=== PATIENT | male | born 1965 | race Caucasian/White ===

== ENCOUNTER 2022-07-29 10:21 | Inpatient (IN) | payer SELFPAY ==
[2022-07-29] VITALS (37 sets, daily range): BP systolic 96–121; BP diastolic 56–81; PULSE 72–107; RESP 18; TEMP 36.9–38.5; O2SAT 94–100; BMI 32.8; BMI 28.0
--- NOTE | 2022-07-29 11:05 | ED_ITS ---
HPI - General Adult General Chief complaint: Headache/Migraine Stated complaint: Headache Time Seen by Provider: 07/29/22 10:44 Source: patient Mode of arrival: ambulatory Limitations: no limitations History of Present Illness HPI narrative: 57-year-old male coming in today not feeling well. Patient states that he has been sick for about 12 days. He started not feeling well last Monday after eating [place] food. He stated that he had an upset stomach and nausea. Then on Monday he developed chills after work and increased fatigued, as well as a headache. He has been feeling unwell since. He denies chest or abdominal pain. Does complain of continued nausea. States that he had a hard time eating for a few days because he was so nauseated. Denies any diarrhea. Denies any urinary symptoms such as increased frequency, urgency or dysuria. He denies cough, congestion or sore throat. No neurologic symptoms such as focal neurologic deficits. Related Data Home Medications Medication Instructions Recorded Confirmed No Known Home Medications 07/29/22 07/29/22 Allergies Allergy/AdvReac Type Severity Reaction Status Date / Time No Known Drug Allergies Allergy Verified 07/29/22 10:36 Review of Systems Status of ROS: Reports: 10 or more systems reviewed and unremarkable except as noted in History and below [facility] Social History Smoking Status: Never smoker How often do you have a drink containing alcohol: never How often do you have six or more drinks on one occasion: Never AUDIT-C Alcohol total score: 0 Non-prescribed substance use: denies use Exam Narrative: Exam Narrative: Well-nourished well-developed patient in no acute distress. Alert and oriented. Answers questions appropriately. Mood and affect are appropriate. Thoughts are goal oriented and rational. No tangential or magical thinking noted. Patient speaks in full sentences without needing to catch their breath. HEENT: Normocephalic atraumatic. Pupils are equally round reactive to light. Extraocular muscles are intact. Conjunctivae are moist without any icterus noted. Moist mucous membranes. Posterior pharynx is normal. Neck is soft without any lymphadenopathy or thyromegaly. No masses are appreciated. Cardiovascular: Heart is regular rate and rhythm S1 and S2 are present without any murmurs. Lungs: Clear to auscultation bilaterally no wheezes rhonchi or rales are appreciated. Patient takes deep breaths without any discomfort. Abdomen: Soft and nontender nondistended with normal bowel sounds. No guarding or rebound. No masses or organomegaly appreciated. Extremities: Bilateral lower extremities are without edema. Normal DP and PT pulses. Skin: Well perfused without any obvious rashes. Const: Vital Signs, click to edit/add: Vital Signs - 24 hr 07/29/22 10:32 07/29/22 11:31 07/29/22 11:32 Temperature 99.0 F Pulse Rate 86 84 Pulse Rate [Right Pulse Oximeter] 106 H Respiratory Rate 18 Blood Pressure 110/65 Blood Pressure [Ri ght Upper Arm] 118/81 Pulse Oximetry 98 97 96 Oxygen Delivery Me thod Room Air 07/29/22 11:45 07/29/22 12:00 07/29/22 12:01 Temperature Pulse Rate 80 82 78 Pulse Rate [Right Pulse Oximeter] Respiratory Rate Blood Pressure 97/62 Blood Pressure [Ri ght Upper Arm] Pulse Oximetry 95 95 95 Oxygen Delivery Me thod 07/29/22 12:02 07/29/22 12:16 07/29/22 12:30 Temperature Pulse Rate 80 81 73 Pulse Rate [Right Pulse Oximeter] Respiratory Rate Blood Pressure Blood Pressure [Ri ght Upper Arm] Pulse Oximetry 96 97 96 Oxygen Delivery Me thod 07/29/22 12:32 07/29/22 12:45 07/29/22 13:00 Temperature Pulse Rate 75 77 73 Pulse Rate [Right Pulse Oximeter] Respiratory Rate Blood Pressure 105/69 Blood Pressure [Ri ght Upper Arm] Pulse Oximetry 96 95 97 Oxygen Delivery Me thod 07/29/22 13:02 07/29/22 13:15 07/29/22 15:15 Temperature Pulse Rate 72 73 72 Pulse Rate [Right Pulse Oximeter] Respiratory Rate Blood Pressure 105/56 L Blood Pressure [Ri ght Upper Arm] Pulse Oximetry 97 94 97 Oxygen Delivery Me thod 07/29/22 15:17 07/29/22 15:30 07/29/22 15:45 Temperature Pulse Rate 72 75 74 Pulse Rate [Right Pulse Oximeter] Respiratory Rate Blood Pressure 110/69 Blood Pressure [Ri ght Upper Arm] Pulse Oximetry 99 98 99 Oxygen Delivery Me thod 07/29/22 16:00 07/29/22 16:17 07/29/22 16:30 Temperature Pulse Rate 73 81 77 Pulse Rate [Right Pulse Oximeter] Respiratory Rate Blood Pressure Blood Pressure [Ri ght Upper Arm] Pulse Oximetry 97 100 96 Oxygen Delivery Me thod 07/29/22 19:14 07/29/22 16:45 07/29/22 17:00 Temperature 101.3 F H Pulse Rate 81 88 Pulse Rate [Right Pulse Oximeter] Respiratory Rate Blood Pressure Blood Pressure [Ri ght Upper Arm] Pulse Oximetry 99 96 Oxygen Delivery Me thod 07/29/22 17:15 07/29/22 17:30 07/29/22 17:45 Temperature Pulse Rate 84 86 88 Pulse Rate [Right Pulse Oximeter] Respiratory Rate Blood Pressure Blood Pressure [Ri ght Upper Arm] Pulse Oximetry 97 96 97 Oxygen Delivery Me thod 07/29/22 19:13 Temperature Pulse Rate 93 Pulse Rate [Right Pulse Oximeter] Respiratory Rate Blood Pressure Blood Pressure [Ri ght Upper Arm] Pulse Oximetry 95 Oxygen Delivery Me thod Course Course Hospital Course: For his headache, he received normal saline, Toradol, Zofran. This helped a little bit but is headache soon came back. IV morphine was given at that time. Patient had elevated white cell count and significantly elevated CRP. Because of this we did proceed with an abdomen and pelvis CT which showed liver lesions concerning for metastasis, diverticulitis was also present although an underlying colonic lesion cannot be excluded at this time. We did start him on IV ertapenem at this time. I did consult with Dr. Mcgovern who recommended a chest CT and a liver MRI. Chest CT showed ground-glass subpleural reticular opacities of unclear significance. Liver MRI showing lesions concerning for metastatic disease. Given that the patient continue to have headaches also added a head MRI to rule out brain metastasis. Brain MRI was unremarkable. While he was here, patient developed a fever of 101.3. And became diaphoretic. Because of this we also did blood cultures despite antibiotic treatment. At this time it was decided to admit the patient for further management. Vital Signs Vital signs: Initial Vital Signs Temperature 99.0 F 07/29/22 10:32 Temperature Source Temporal Artery Scan 07/29/22 10:32 Pulse Rate 106 H 07/29/22 10:32 Respiratory Rate 18 07/29/22 10:32 Blood Pressure 118/81 07/29/22 10:32 Blood Pressure Mean 93 07/29/22 10:32 Blood Pressure Position Sitting 07/29/22 10:32 Pulse Oximetry 98 07/29/22 10:32 Oxygen Delivery Method 07/29/22 10:32 Vital Signs Temperature 99.0 F 07/29/22 10:32 Pulse Rate 106 H 07/29/22 10:32 Respiratory Rate 18 07/29/22 10:32 Blood Pressure 118/81 07/29/22 10:32 Pulse Oximetry 98 07/29/22 10:32 Oxygen Delivery Method 07/29/22 10:32 Temperature 101.3 F H 07/29/22 19:14 Pulse Rate 93 07/29/22 19:13 Respiratory Rate 18 07/29/22 10:32 Blood Pressure 110/69 07/29/22 15:17 Pulse Oximetry 95 07/29/22 19:13 Oxygen Delivery Method 07/29/22 10:32 Medical Decision Making MDM Narrative Medical decision making narrative: 57-year-old male with fever, diverticulitis, question cancer metastasis, headache. Patient will be admitted for further management. Lab Data Lab results reviewed: Yes I reviewed the patient's lab results Labs: Lab Results 07/29/22 07/29/22 07/29/22 Range/Units 11:08 11:08 11:08 WBC 15.06 H (4.50-11.00) K/uL RBC 4.50 (4.30-5.90) m/uL Hgb 13.3 L (13.5-17.5) gm/dL Hct 39.5 (37.0-53.0) % MCV 88 (80-100) fL MCH 30 (26-34) pg MCHC 34 (32-36) gm/dL RDW Coeff of Eusebio 12.6 (11.5-15.5) % Plt Count 320 (140-440) K/uL Neut % (Auto) 82.8 H (42.0-72.0) % Lymph % (Auto) 7.7 L (20-44) % Randolph % (Auto) 8.2 (0.0-11.0) % Eos % (Auto) 0.1 (0.0-7.0) % Baso % (Auto) 0.1 (0.0-3.0) % Neut # (Auto) 12.50 H (1.7-7.0) K/uL Lymph # (Auto) 1.20 (0.90-2.90) K/uL Randolph # (Auto) 1.20 H (0.00-0.90) K/UL Eos # (Auto) 0.00 (0.00-0.50) K/uL Baso # (Auto) 0.00 (0.00-0.30) K/uL ESR 79 H (2-15) mm/hr Sodium (135-149) mmol/L Potassium (3.6-5.1) mmol/L Chloride (96-114) mmol/L Carbon Dioxide (20-32) mmol/L BUN (7-30) mg/dL Creatinine (0.5-1.5) mg/dL Estimated Creat Clear Estimated GFR ml/min Glucose (60-115) mg/dL Lactate (0.5-1.9) mmol/L Calcium (8.4-10.6) mg/dL Total Bilirubin (0.1-1.5) mg/dL Direct Bilirubin (0.0-0.5) mg/dL AST (12-35) U/L ALT (4-50) U/L Alkaline Phosphatase (40-150) U/L C-Reactive Protein (0.5-1.0) mg/dL Total Protein (6.0-8.3) g/dL Albumin (3.3-5.0) g/dL Urine Color (Yellow) Urine Appearance (Clear) Urine pH (5.0-8.5) Ur Specific [place] (1.000-1.030) Urine Protein (Negative) Urine Glucose (UA) (Negative) Urine Ketones (Negative) Urine Blood (Negative) Urine Nitrite (Negative) Urine Bilirubin (Negative) Urine Urobilinogen (0.2-1.0) Ur Leukocyte Esterase (Negative) Urine RBC (0-2) Urine WBC (0-5) Ur Squamous Epith Cells (None-Few) Urine Bacteria (None) SARS-CoV-2 (PCR) (Negative) Monoscreen Negative (Negative) Influenza Type A (PCR) (Negative) Influenza Type B (PCR) (Negative) RSV (PCR) (Negative) 07/29/22 07/29/22 07/29/22 Range/Units 11:08 11:08 11:08 WBC (4.50-11.00) K/uL RBC (4.30-5.90) m/uL Hgb (13.5-17.5) gm/dL Hct (37.0-53.0) % MCV (80-100) fL MCH (26-34) pg MCHC (32-36) gm/dL RDW Coeff of Eusebio (11.5-15.5) % Plt Count (140-440) K/uL Neut % (Auto) (42.0-72.0) % Lymph % (Auto) (20-44) % Randolph % (Auto) (0.0-11.0) % Eos % (Auto) (0.0-7.0) % Baso % (Auto) (0.0-3.0) % Neut # (Auto) (1.7-7.0) K/uL Lymph # (Auto) (0.90-2.90) K/uL Randolph # (Auto) (0.00-0.90) K/UL Eos # (Auto) (0.00-0.50) K/uL Baso # (Auto) (0.00-0.30) K/uL ESR (2-15) mm/hr Sodium 134 L (135-149) mmol/L Potassium 4.0 (3.6-5.1) mmol/L Chloride 102 (96-114) mmol/L Carbon Dioxide 26 (20-32) mmol/L BUN 9 (7-30) mg/dL Creatinine 0.7 (0.5-1.5) mg/dL Estimated Creat Clear 84.33 Estimated GFR 109 ml/min Glucose 145 H (60-115) mg/dL Lactate 1.0 (0.5-1.9) mmol/L Calcium 8.5 (8.4-10.6) mg/dL Total Bilirubin (0.1-1.5) mg/dL Direct Bilirubin (0.0-0.5) mg/dL AST (12-35) U/L ALT (4-50) U/L Alkaline Phosphatase (40-150) U/L C-Reactive Protein 19.2 H (0.5-1.0) mg/dL Total Protein (6.0-8.3) g/dL Albumin (3.3-5.0) g/dL Urine Color (Yellow) Urine Appearance (Clear) Urine pH (5.0-8.5) Ur Specific [place] (1.000-1.030) Urine Protein (Negative) Urine Glucose (UA) (Negative) Urine Ketones (Negative) Urine Blood (Negative) Urine Nitrite (Negative) Urine Bilirubin (Negative) Urine Urobilinogen (0.2-1.0) Ur Leukocyte Esterase (Negative) Urine RBC (0-2) Urine WBC (0-5) Ur Squamous Epith Cells (None-Few) Urine Bacteria (None) SARS-CoV-2 (PCR) Negative SARS-CoV-2 (Negative) Monoscreen (Negative) Influenza Type A (PCR) Negative PCR FLU A (Negative) Influenza Type B (PCR) Negative PCR FLU B (Negative) RSV (PCR) Negative PCR RSV (Negative) 07/29/22 07/29/22 Range/Units 11:08 12:08 WBC (4.50-11.00) K/uL RBC (4.30-5.90) m/uL Hgb (13.5-17.5) gm/dL Hct (37.0-53.0) % MCV (80-100) fL MCH (26-34) pg MCHC (32-36) gm/dL RDW Coeff of Eusebio (11.5-15.5) % Plt Count (140-440) K/uL Neut % (Auto) (42.0-72.0) % Lymph % (Auto) (20-44) % Randolph % (Auto) (0.0-11.0) % Eos % (Auto) (0.0-7.0) % Baso % (Auto) (0.0-3.0) % Neut # (Auto) (1.7-7.0) K/uL Lymph # (Auto) (0.90-2.90) K/uL Randolph # (Auto) (0.00-0.90) K/UL Eos # (Auto) (0.00-0.50) K/uL Baso # (Auto) (0.00-0.30) K/uL ESR (2-15) mm/hr Sodium (135-149) mmol/L Potassium (3.6-5.1) mmol/L Chloride (96-114) mmol/L Carbon Dioxide (20-32) mmol/L BUN (7-30) mg/dL Creatinine (0.5-1.5) mg/dL Estimated Creat Clear Estimated GFR ml/min Glucose (60-115) mg/dL Lactate (0.5-1.9) mmol/L Calcium (8.4-10.6) mg/dL Total Bilirubin 2.2 H (0.1-1.5) mg/dL Direct Bilirubin 0.7 H (0.0-0.5) mg/dL AST 69 H (12-35) U/L ALT 103 H (4-50) U/L Alkaline Phosphatase 260 H (40-150) U/L C-Reactive Protein (0.5-1.0) mg/dL Total Protein 7.8 (6.0-8.3) g/dL Albumin 3.9 (3.3-5.0) g/dL Urine Color Red A (Yellow) Urine Appearance Clear (Clear) Urine pH 7.0 (5.0-8.5) Ur Specific [place] 1.020 (1.000-1.030) Urine Protein 2+ A (Negative) Urine Glucose (UA) Trace A (Negative) Urine Ketones Negative (Negative) Urine Blood Negative (Negative) Urine Nitrite Positive A (Negative) Urine Bilirubin 2+ A (Negative) Urine Urobilinogen >=8.0 (0.2-1.0) Ur Leukocyte Esterase Negative (Negative) Urine RBC 0-2 (0-2) Urine WBC 0-2 (0-5) Ur Squamous Epith Cells Few (None-Few) Urine Bacteria Few A (None) SARS-CoV-2 (PCR) (Negative) Monoscreen (Negative) Influenza Type A (PCR) (Negative) Influenza Type B (PCR) (Negative) RSV (PCR) (Negative) Imaging Data Chest x-ray: Attestation: I have reviewed the pertinent imaging results. Radiologist's impression: Chest 1 view. COMPARISON: None. FINDINGS: Cardiovascular and mediastinum: Heart size and vasculature are normal in caliber and appearance.? Mediastinum is within normal limits.? Lungs and pleural space: Lungs are clear.? No sign of infiltrate or mass.? No sign of pleural effusion.? No pneumothorax.? Bones and soft tissues: No significant findings.? IMPRESSION: Unremarkable chest. CT scan - chest: Attestation: I have reviewed the pertinent imaging results. Radiologist's impression: Noncontrast CT chest Comparison: No comparison Findings: Gynecomastia. Normal caliber thoracic aorta. Heart size within normal limits there is no mediastinal or adenopathy. There is no effusion. Bilateral subpleural ground-glass reticular opacities with subpleural sparing. Nonspecific could be related to interstitial lung disease or other infectious inflammatory etiologies there is no dense consolidation. No effusion. Multiple hypodense ill-defined liver lesions again seen. No suspicious bony lesions are seen. Impression: 1. Nonspecific bilateral mild subpleural ground-glass reticular opacities with subpleural sparing could be related to interstitial lung disease could be infectious or inflammatory. There is no dense consolidation. No suspicious nodules are seen. 2. Multiple liver lesions again visualized. CT scan - abdomen: Attestation: I have reviewed the pertinent imaging results. Radiologist's impression: CT abdomen and pelvis with 100 cc Omnipaque IV contrast. COMPARISON: None. FINDINGS: Several scattered heterogeneous ill-defined lesions throughout the liver with the largest in the left hepatic lobe measuring 3.1 x 2.9 cm and right hepatic lobe measuring 3.3 x 3.1 cm. The gallbladder surgically absent. The spleen, adrenal glands and pancreas are within normal limits. The kidneys are unremarkable. Bladder appears unremarkable. Colonic diverticulosis with wall thickening and inflammation involving the distal descending colon/sigmoid junction. Finding concerning for to acute diverticulitis although with the hepatic lesions as discussed above underlying mass will need to be excluded. Additionally, extending into the retroperitoneal region there is soft tissue inflammation and a few subcentimeter mildly prominent lymph nodes. No evidence of abscess. No significant free fluid and no free air. The prostate is heterogenously enlarged measuring 5.0 x 5.5 cm. The lower chest is unremarkable. IMPRESSION: Several scattered heterogeneous ill-defined lesions throughout the liver with the largest in the left hepatic lobe measuring 3.1 x 2.9 cm and right hepatic lobe measuring 3.3 x 3.1 cm. Findings are highly concerning for metastatic disease. Colonic diverticulosis with wall thickening and inflammation involving the distal descending colon/sigmoid junction. Finding concerning for to acute diverticulitis although with the hepatic lesions as discussed above underlying colonic mass will need to be excluded. Additionally, extending into the retroperitoneal periaortic region there is soft tissue inflammation and a few subcentimeter mildly prominent lymph nodes. Finding may be reactive but metastatic disease not excluded. The prostate is heterogenously enlarged measuring 5.0 x 5.5 cm. Brain MRI: Attestation: I have reviewed the pertinent imaging results. Radiologist's impression: Multiplanar multisequence noncontrast MR images acquired through the brain. COMPARISON: None. FINDINGS: The ventricles and sulci are within normal limits for patient age. No mass effect or midline shift. Few punctate T2 FLAIR hyperintensities in the supratentorial white matter, nonspecific. No diffusion restriction to suggest acute infarction. No intracranial hemorrhage or pathologic extra-axial fluid collection. The major arterial flow voids of the skullbase are preserved. The globes are symmetric. Mild paranasal sinus mucosal thickening. Trace right mastoid fluid. IMPRESSION: 1. No acute infarction, mass effect, or intracranial hemorrhage. 2. Few punctate T2 FLAIR hyperintensities in the supratentorial white matter are nonspecific, though typical for sequelae of minimal chronic microvascular ischemic changes or migraine headaches. Liver MRI: Attestation: I have reviewed the pertinent imaging results. Radiologist's impression: Multisequence multiplanar MRI of the abdomen both with and without IV contrast (15 mL Dotarem). Comparison: CT abdomen/pelvis earlier same day dated 07/29/2022. Findings: Liver: Mild hepatic steatosis. Multiple hepatic lesions which show mild T2 hyperintensity. Largest lesion in the left lobe in segment 2/3 measures 3.0 x 2.3 cm, largest lesion in the right lobe in segment 6/7 measures 3.1 x 2.3 cm. These show mildly thickened/irregular septations, as well as peripheral/perilesional enhancement and restricted diffusion, and remain concerning for metastatic disease. Bile ducts: No biliary duct dilation. Gallbladder: Postcholecystectomy. Pancreas: Unremarkable. Spleen: Unremarkable. Adrenals: Unremarkable. Kidneys: Kidneys enhance symmetrically, without hydronephrosis. Retroperitoneum: No pathologically enlarged lymph node. Visualized Bowel and mesentery: Visualized bowel is nondilated. Previously described sigmoid colonic process not included within field of view of this study. Vessels: Unremarkable. Abdominal wall: No acute abdominal wall abnormality. Bones: No suspicious/aggressive focal enhancing osseous lesion identified. Impression: Multiple hepatic lesions, with signal and enhancement characteristics which remain concerning for metastatic disease. Discharge Plan Discharge Prescriptions: No Action No Known Home Medications
[2022-07-29] MEDS: 0.9 % SODIUM CHLORIDE 1000 ml 1,000 ML IV (11:15)
[2022-07-29] MEDS: ONDANSETRON 2 MG/ML inj 4 MG IVP (11:18)
[2022-07-29] MEDS: KETOROLAC 30 MG/ML inj IVP ×2 (11:19→22:43)
[2022-07-29 11:20] LABS: Basophils Percent Auto 0.1 % (0.0-3.0); Eosinophils Percent Auto 0.1 % (0.0-7.0); Hematocrit 39.5 % (37.0-53.0); Hemoglobin* 13.3 gm/dL (13.5-17.5); Immature Granulocytes Pct Auto 1.1 %; Lymphocytes Percent Auto 7.7 % (20-44); Mean Corpuscular HGB Conc 34 gm/dL (32-36); Mean Corpuscular Hemoglobin 30 pg (26-34); Mean Corpuscular Volume 88 fL (80-100); Monocytes Percent Auto 8.2 % (0.0-11.0); Neutrophils Percent Auto 82.8 % (42.0-72.0); Platelet Count* 320 K/uL (140-440); RDW Coefficient of Variation % 12.6 % (11.5-15.5); White Blood Count* 15.06 K/uL (4.50-11.00)
[2022-07-29 11:30] LABS: Chloride* 102 mmol/L (96-114)
[2022-07-29 11:31] LABS: Sodium* 134 mmol/L (135-149)
[2022-07-29 11:32] LABS: Albumin* 3.9 g/dL (3.3-5.0)
[2022-07-29 11:33] LABS: Creatinine* 0.7 mg/dL (0.5-1.5); Est. Creatinine Clearance* 84.33; Estimated Glomerular Filt Rate 109 ml/min; Mono Screen* Negative (Negative)
[2022-07-29 11:34] LABS: Blood Urea Nitrogen* 9 mg/dL (7-30); Calcium* 8.5 mg/dL (8.4-10.6); Carbon Dioxide* 26 mmol/L (20-32); Glucose* 145 mg/dL (60-115)
[2022-07-29 11:35] LABS: Alanine Aminotransferase* 103 U/L (4-50); Alkaline Phosphatase* 260 U/L (40-150); Aspartate Amino Transferase* 69 U/L (12-35); Bilirubin Direct* 0.7 mg/dL (0.0-0.5); Bilirubin Total* 2.2 mg/dL (0.1-1.5); Total Protein* 7.8 g/dL (6.0-8.3)
[2022-07-29 11:48] LABS: C Reactive Protein* 19.2 mg/dL (0.5-1.0)
[2022-07-29 11:56] LABS: Slide Review Reflex No
[2022-07-29 11:57] LABS: PCR FLU A Negative PCR FLU A (Negative); PCR FLU B Negative PCR FLU B (Negative); PCR RSV Negative PCR RSV (Negative)
[2022-07-29 12:03] LABS: SARS PCR* Negative SARS-CoV-2 (Negative)
--- NOTE | 2022-07-29 12:08 | CRLHL7_ITS ---
For Patients: As a result of the Century Cures Act, medical imaging exams and procedure reports are released immediately into your electronic medical record. You may view this report before your referring provider. If you have questions, please contact your health care provider. INDICATION: Fever TECHNIQUE: Chest 1 view. COMPARISON: None. FINDINGS: Cardiovascular and mediastinum: Heart size and vasculature are normal in caliber and appearance. Mediastinum is within normal limits. Lungs and pleural space: Lungs are clear. No sign of infiltrate or mass. No sign of pleural effusion. No pneumothorax. Bones and soft tissues: No significant findings. IMPRESSION: Unremarkable chest. Dictated by: Pete Posada MD @ 07/29/2022 12:31:46 (Electronically Signed)
[2022-07-29 12:21] LABS: Appearance Urine Clear (Clear); Bilirubin Urine 2+ (Negative); Blood Urine Negative (Negative); Color Urine Red (Yellow); Glucose Urine Trace (Negative); Ketones Urine Negative (Negative); Leukocyte Esterase Urine Negative (Negative); Nitrite Urine Positive (Negative); Protein Urine 2+ (Negative); Urobilinogen Urine >=8.0 (0.2-1.0)
[2022-07-29 12:36] LABS: Erythrocyte SedimentationRate* 79 mm/hr (2-15)
[2022-07-29 12:43] LABS: Bacteria Urine Few; RBC Urine 0-2 (0-2); Squamous Epithelial Cell Urine Few (None-Few); WBC Urine 0-2 (0-5)
--- NOTE | 2022-07-29 13:04 | CRLHL7_ITS ---
For Patients: As a result of the Century Cures Act, medical imaging exams and procedure reports are released immediately into your electronic medical record. You may view this report before your referring provider. If you have questions, please contact your health care provider. INDICATION: HEADACHE, NAUSEA, ABD PAIN, BURNING TECHNIQUE: CT abdomen and pelvis with 100 cc Omnipaque IV contrast. COMPARISON: None. FINDINGS: Several scattered heterogeneous ill-defined lesions throughout the liver with the largest in the left hepatic lobe measuring 3.1 x 2.9 cm and right hepatic lobe measuring 3.3 x 3.1 cm. The gallbladder surgically absent. The spleen, adrenal glands and pancreas are within normal limits. The kidneys are unremarkable. Bladder appears unremarkable. Colonic diverticulosis with wall thickening and inflammation involving the distal descending colon/sigmoid junction. Finding concerning for to acute diverticulitis although with the hepatic lesions as discussed above underlying mass will need to be excluded. Additionally, extending into the retroperitoneal region there is soft tissue inflammation and a few subcentimeter mildly prominent lymph nodes. No evidence of abscess. No significant free fluid and no free air. The prostate is heterogenously enlarged measuring 5.0 x 5.5 cm. The lower chest is unremarkable. IMPRESSION: Several scattered heterogeneous ill-defined lesions throughout the liver with the largest in the left hepatic lobe measuring 3.1 x 2.9 cm and right hepatic lobe measuring 3.3 x 3.1 cm. Findings are highly concerning for metastatic disease. Colonic diverticulosis with wall thickening and inflammation involving the distal descending colon/sigmoid junction. Finding concerning for to acute diverticulitis although with the hepatic lesions as discussed above underlying colonic mass will need to be excluded. Additionally, extending into the retroperitoneal periaortic region there is soft tissue inflammation and a few subcentimeter mildly prominent lymph nodes. Finding may be reactive but metastatic disease not excluded. The prostate is heterogenously enlarged measuring 5.0 x 5.5 cm. Please note that all CT scans at this facility use dose modulation, iterative reconstruction, and/or weight-based dosing when appropriate to reduce radiation dose to as low as reasonably achievable. Dictated by Sha Silverio MD @ 07/29/2022 2:53:36 PM (Electronically Signed)
[2022-07-29] MEDS: MORPHINE 2 MG/ML inj IVP (15:15)
--- NOTE | 2022-07-29 15:28 | CRLHL7_ITS ---
For Patients: As a result of the Century Cures Act, medical imaging exams and procedure reports are released immediately into your electronic medical record. You may view this report before your referring provider. If you have questions, please contact your health care provider. Indication: Liver lesions. Technique: Multisequence multiplanar MRI of the abdomen both with and without IV contrast (15 mL Dotarem). Comparison: CT abdomen/pelvis earlier same day dated 07/29/2022. Findings: Liver: Mild hepatic steatosis. Multiple hepatic lesions which show mild T2 hyperintensity. Largest lesion in the left lobe in segment 2/3 measures 3.0 x 2.3 cm, largest lesion in the right lobe in segment 6/7 measures 3.1 x 2.3 cm. These show mildly thickened/irregular septations, as well as peripheral/perilesional enhancement and restricted diffusion, and remain concerning for metastatic disease. Bile ducts: No biliary duct dilation. Gallbladder: Postcholecystectomy. Pancreas: Unremarkable. Spleen: Unremarkable. Adrenals: Unremarkable. Kidneys: Kidneys enhance symmetrically, without hydronephrosis. Retroperitoneum: No pathologically enlarged lymph node. Visualized Bowel and mesentery: Visualized bowel is nondilated. Previously described sigmoid colonic process not included within field of view of this study. Vessels: Unremarkable. Abdominal wall: No acute abdominal wall abnormality. Bones: No suspicious/aggressive focal enhancing osseous lesion identified. Impression: Multiple hepatic lesions, with signal and enhancement characteristics which remain concerning for metastatic disease. Dictated by Mariely Bob MD @ 07/29/2022 7:56:33 PM (Electronically Signed)
--- NOTE | 2022-07-29 15:28 | CRLHL7_ITS ---
For Patients: As a result of the Century Cures Act, medical imaging exams and procedure reports are released immediately into your electronic medical record. You may view this report before your referring provider. If you have questions, please contact your health care provider. INDICATION: Headaches. TECHNIQUE: Multiplanar multisequence noncontrast MR images acquired through the brain. COMPARISON: None. FINDINGS: The ventricles and sulci are within normal limits for patient age. No mass effect or midline shift. Few punctate T2 FLAIR hyperintensities in the supratentorial white matter, nonspecific. No diffusion restriction to suggest acute infarction. No intracranial hemorrhage or pathologic extra-axial fluid collection. The major arterial flow voids of the skullbase are preserved. The globes are symmetric. Mild paranasal sinus mucosal thickening. Trace right mastoid fluid. IMPRESSION: 1. No acute infarction, mass effect, or intracranial hemorrhage. 2. Few punctate T2 FLAIR hyperintensities in the supratentorial white matter are nonspecific, though typical for sequelae of minimal chronic microvascular ischemic changes or migraine headaches. Dictated by Nestor Burleson MD @ 07/29/2022 7:20:21 PM (Electronically Signed)
--- NOTE | 2022-07-29 15:31 | CRLHL7_ITS ---
For Patients: As a result of the Cures Act, medical imaging exams and procedure reports are released immediately into your electronic medical record. You may view this report before your referring provider. If you have questions, please contact your health care provider. Indication: Fever Technique: Noncontrast CT chest Comparison: No comparison Findings: Gynecomastia. Normal caliber thoracic aorta. Heart size within normal limits there is no mediastinal or adenopathy. There is no effusion. Bilateral subpleural ground-glass reticular opacities with subpleural sparing. Nonspecific could be related to interstitial lung disease or other infectious inflammatory etiologies there is no dense consolidation. No effusion. Multiple hypodense ill-defined liver lesions again seen. No suspicious bony lesions are seen. Impression: 1. Nonspecific bilateral mild subpleural ground-glass reticular opacities with subpleural sparing could be related to interstitial lung disease could be infectious or inflammatory. There is no dense consolidation. No suspicious nodules are seen. 2. Multiple liver lesions again visualized. Please note that all CT scans at this facility use dose modulation, iterative reconstruction, and/or weight-based dosing when appropriate to reduce radiation dose to as low as reasonably achievable. Dictated by Lyn Dmias MD @ 07/29/2022 6:28:07 PM (Electronically Signed)
[2022-07-29] MEDS: ERTAPENEM 1 GM in 0.9 % SODIUM CHLORIDE Mini-bag 100 ML IVPB (16:13)
--- NOTE | 2022-07-29 19:15 | ED.NURSE ---
Pt noted to be diaphoretic and pt mentioned he felt warm. Oral temp checked, now 101.3F. notified.
[2022-07-29] MEDS: ACETAMINOPHEN 500 MG TABLET 1000 MG PO (19:51)
--- NOTE | 2022-07-29 19:52 | W.PC.EDHO ---
Primary Language: Lao Preferred Language: Orientation Status: [x] Alert & Oriented [] Slight Confusion [] Known Dx Dementia Transfers By: [x] Assist of 1 [] Assist of 2 [] Lift Active Medications Generic Name Dose Route Start Last Admin Trade Name Freq PRN Reason Stop Dose Admin Acetaminophen 1,000 mg 07/29/22 19:46 07/29/22 19:51 Acetaminophen 500 Mg Tablet PO 07/29/22 19:47 1,000 mg ONCE ONE Administration Morphine Sulfate 2 mg 07/29/22 15:06 07/29/22 15:15 Morphine 2 Mg/Ml Inj IVP 2 mg Q2H PRN Administration Discontinued Medications Generic Name Dose Route Start Last Admin Trade Name Freq PRN Reason Stop Dose Admin Sodium Chloride 1,000 mls @ 1,000 mls/hr 07/29/22 11:00 07/29/22 12:42 0.9 % Sodium Chloride 1000 Ml IV 07/29/22 11:59 Infused .Q1H REEMA Infusion Ertapenem 1 gm/ Sodium 100 mls @ 200 mls/hr 07/29/22 15:24 07/29/22 16:45 Chloride IVPB 07/29/22 15:25 Infused ONCE ONE Infusion Ketorolac Tromethamine 30 mg 07/29/22 10:56 07/29/22 11:19 Ketorolac 30 Mg/Ml Inj IVP 07/29/22 10:57 30 mg ONCE ONE Administration Ondansetron HCl 4 mg 07/29/22 10:56 07/29/22 11:18 Ondansetron 2 Mg/Ml Inj IVP 07/29/22 10:57 4 mg ONCE ONE Administration Description of Symptoms ED Triage Present Problem headache 10 days ago. no history of migranes. Description has tried tylenol with relief for about 20 minutes . states last week had fevers, but not this week. Female History Patient Pain Pain Intensity 2 Pain Intensity 5 Pain Intensity 4 Pain Intensity 4 Pain Intensity 4 Pain Intensity 4 Pain Scale Used Numeric (1 - 10) Pain Scale Used Numeric (1 - 10) Pain Scale Used Numeric (1 - 10) Pain Scale Used Numeric (1 - 10) Pain Scale Used Numeric (1 - 10) Pain Scale Used Numeric (1 - 10) IV Insertion/Site Date of IV Line Insertion [ 07/29/22 Right Antecubital] Oxygen Administration Pulse Oximetry 95 Pulse Oximetry 97 Pulse Oximetry 96 Pulse Oximetry 97 Pulse Oximetry 96 Pulse Oximetry 99 Pulse Oximetry 96 Pulse Oximetry 100 Pulse Oximetry 97 Pulse Oximetry 99 Pulse Oximetry 98 Pulse Oximetry 99 Pulse Oximetry 97 Pulse Oximetry 94 Pulse Oximetry 97 Pulse Oximetry 97 Pulse Oximetry 95 Pulse Oximetry 96 Pulse Oximetry 96 Pulse Oximetry 97 Pulse Oximetry 96 Pulse Oximetry 95 Pulse Oximetry 95 Pulse Oximetry 95 Pulse Oximetry 96 Pulse Oximetry 97 Pulse Oximetry 98 Oxygen Delivery Method Room Air
--- NOTE | 2022-07-29 20:57 | PM.IMHP1 ---
Hospitalist- H&P: HPI History of Present Illness Date Seen: 07/30/22 Chief complaint: Headache Narrative: ADMISSION HISTORY AND PHYSICAL - HOSPITALIST Chief Complaint: Headache, malaise, fever x2 weeks HPI: 57-year-old male presents after a 2 week illness. He has felt poorly but unspecified. He has been febrile but has not taken his temperature. He has had chills. He has had a headache. More importantly there has been no nausea, vomiting, abdominal pain, dysuria, diarrhea, rectal bleeding, rash, recent travel, cough, URI symptoms. He thought maybe he had COVID, initially, but tested negative at home. It was his headache that brought him in today and prolonged symptoms. ER COURSE: Long ER course with stages of workup. Labs showed an infection with a leukocytosis and high inflammatory markers. CT ABD/PELVIS showed possible diverticulitis (or mass?) and liver lesions. Liver MR confirmed lesions that were metabolically active concerning for hepatic metastasis. With his headache he did get a brain MRI which was reassuring. He did get a chest CT which showed some subpleural opacities. Initially he did not have a fever, and I spoke with Dr. Wong from General surgery, who said if he was able to be discharged he could go home on oral antibiotics for diverticulitis and see her next week for a colonoscopy and liver MRI. At about 4:00 p.m. on 07/29 the ER doc did administer IV ertapenem with the thought that he would be going home with oral antibiotics for diverticulitis. However in the ensuing hours he developed a fever to 101.3, rigors and his headache returned. It was at this point that we decided to keep him, we ordered blood cultures as soon as his fever developed. For this was after his 1st dose of IV antibiotics. His UA also shows nitrate without other evidence of UTI. CODE STATUS: Full code EMERGENCY CONTACT PLAN: His son, Marin, [facility], medications and allergies in the [facility]se tabs. INVESTIGATIONS: LABS/MICRO/ECG/IMAGING 121/68. Pulse 90. Respirations 18. Temp 101.3?. Upon arrival to the floor his temp was 99?. CBC 15.06, 82.8% neutrophils Hemoglobin 13.3 Platelets 320 ESR 79, CRP 19.2 Sodium 134 Glucose 145 Normal renal function Otherwise normal electrolytes Lactate normal Bili 2.2 Direct 0.7 AST 69 ALT 103 Alk-phos 260 UA shows positive nitrite, 2+ bilirubin, 2+ protein 0-2 white blood cells and a few bacteria Respiratory panel including mono all negative Hep panel pending Chest CT 1. Nonspecific bilateral mild subpleural ground-glass reticular opacities with subpleural sparing could be related to interstitial lung disease could be infectious or inflammatory. There is no dense consolidation. No suspicious nodules are seen. 2. Multiple liver lesions again visualized. Brain MRI 1. No acute infarction, mass effect, or intracranial hemorrhage. 2. Few punctate T2 FLAIR hyperintensities in the supratentorial white matter are nonspecific, though typical for sequelae of minimal chronic microvascular ischemic changes or migraine headaches. Liver MRI Impression: Multiple hepatic lesions, with signal and enhancement characteristics which remain concerning for metastatic disease. Abdomen pelvis CT Several scattered heterogeneous ill-defined lesions throughout the liver with the largest in the left hepatic lobe measuring 3.1 x 2.9 cm and right hepatic lobe measuring 3.3 x 3.1 cm. Findings are highly concerning for metastatic disease. Colonic diverticulosis with wall thickening and inflammation involving the distal descending colon/sigmoid junction. Finding concerning for to acute diverticulitis although with the hepatic lesions as discussed above underlying colonic mass will need to be excluded. Additionally, extending into the retroperitoneal periaortic region there is soft tissue inflammation and a few subcentimeter mildly prominent lymph nodes. Finding may be reactive but metastatic disease not excluded. The prostate is heterogenously enlarged measuring 5.0 x 5.5 cm. Blood culture x2 pending (NOTE 07/29 at 7:52 p.m. and 805 p.m. - ertapenem given 4:13 p.m.) Urine culture pending REVIEW OF SYSTEMS: 12-point ROS completed with patient and negative unless otherwise stated in HPI or below. PHYSICAL EXAM: CONSTITUTIONAL: setswana speaking, NAD - talks fast and seems animated. diaphoretic throughout our interview. bedside interpretor used. VITAL SIGNS: see record. HEENT: Normocephalic, atraumatic. PERRL, EOMI, conjunctivae pink, mild scleral icterus. Ears and nose externally normal. Pharynx normal. NECK: No JVD. No carotid bruit, no thyromegaly, no adenopathy. CHEST: Clear to auscultation bilaterally HEART: S1 and S2 normal. No harsh murmurs. No edema. Abdomen: soft. mildly obese. normal bowel sounds. no pain to palpation. MUSCULOSKELETAL: No gross joint deformity or swelling. NEURO: Cranial nerves intact. Grossly intact. No asymmetric findings. SKIN: No rashes, petechiae, concerning changes PSYCHIATRIC: Euthymic. ADMIT TO MEDSURG: FLOOR CARE DVT: Lovenox GI: PO intake - CLEARS AND PPI Time spent: 70 minutes examining patient, conferring with family and patient, care staff, developing care plan [facility] Medical History (Updated 07/29/22 @ 21:37 by Clary Mcgovern MD) Diverticulosis Surgical History (Updated 07/29/22 @ 21:27 by Clary Mcgovern MD) History of laparoscopic cholecystectomy History of right knee surgery Social History (Updated 07/29/22 @ 21:29 by Clary Mcgovern MD) Narrative: Has been to his for 28 years. She presently lives in [place]. He has not been to [place] for 22 years. He lives with his son, [id number] and 2 grandchildren. He works for [employer] in [place] [facility] [facility] surgery - NO TOBACCO, NO ALCOHOL, NO DRUGS Smoking Status: Never smoker How often do you have a drink containing alcohol: never How often do you have six or more drinks on one occasion: Never AUDIT-C Alcohol total score: 0 Non-prescribed substance use: denies use Meds Home Medications and Allergies Home Medications Medication Instructions Recorded Confirmed Type No Known Home Medications 07/29/22 07/29/22 History Allergies Allergy/AdvReac Type Severity Reaction Status Date / Time No Known Drug Allergies Allergy Verified 07/29/22 10:36 Exam Const: Vital Signs, click to edit/add: Vital Signs - 24 hr 07/29/22 10:32 07/29/22 11:31 07/29/22 11:32 Temperature 99.0 F Pulse Rate 86 84 Pulse Rate [Right Pulse Oximeter] 106 H Respiratory Rate 18 Blood Pressure 110/65 Blood Pressure [Ri ght Upper Arm] 118/81 Pulse Oximetry 98 97 96 Oxygen Delivery Me thod Room Air 07/29/22 11:45 07/29/22 12:00 07/29/22 12:01 Temperature Pulse Rate 80 82 78 Pulse Rate [Right Pulse Oximeter] Respiratory Rate Blood Pressure 97/62 Blood Pressure [Ri ght Upper Arm] Pulse Oximetry 95 95 95 Oxygen Delivery Me thod 07/29/22 12:02 07/29/22 12:16 07/29/22 12:30 Temperature Pulse Rate 80 81 73 Pulse Rate [Right Pulse Oximeter] Respiratory Rate Blood Pressure Blood Pressure [Ri ght Upper Arm] Pulse Oximetry 96 97 96 Oxygen Delivery Me thod 07/29/22 12:32 07/29/22 12:45 07/29/22 13:00 Temperature Pulse Rate 75 77 73 Pulse Rate [Right Pulse Oximeter] Respiratory Rate Blood Pressure 105/69 Blood Pressure [Ri ght Upper Arm] Pulse Oximetry 96 95 97 Oxygen Delivery Me thod 07/29/22 13:02 07/29/22 13:15 07/29/22 15:15 Temperature Pulse Rate 72 73 72 Pulse Rate [Right Pulse Oximeter] Respiratory Rate Blood Pressure 105/56 L Blood Pressure [Ri ght Upper Arm] Pulse Oximetry 97 94 97 Oxygen Delivery Me thod 07/29/22 15:17 07/29/22 15:30 07/29/22 15:45 Temperature Pulse Rate 72 75 74 Pulse Rate [Right Pulse Oximeter] Respiratory Rate Blood Pressure 110/69 Blood Pressure [Ri ght Upper Arm] Pulse Oximetry 99 98 99 Oxygen Delivery Me thod 07/29/22 16:00 07/29/22 16:17 07/29/22 16:30 Temperature Pulse Rate 73 81 77 Pulse Rate [Right Pulse Oximeter] Respiratory Rate Blood Pressure Blood Pressure [Ri ght Upper Arm] Pulse Oximetry 97 100 96 Oxygen Delivery Me thod 07/29/22 19:14 07/29/22 16:45 07/29/22 17:00 Temperature 101.3 F H Pulse Rate 81 88 Pulse Rate [Right Pulse Oximeter] Respiratory Rate Blood Pressure Blood Pressure [Ri ght Upper Arm] Pulse Oximetry 99 96 Oxygen Delivery Me thod 07/29/22 17:15 07/29/22 17:30 07/29/22 17:45 Temperature Pulse Rate 84 86 88 Pulse Rate [Right Pulse Oximeter] Respiratory Rate Blood Pressure Blood Pressure [Ri ght Upper Arm] Pulse Oximetry 97 96 97 Oxygen Delivery Me thod 07/29/22 19:13 07/29/22 19:14 07/29/22 19:15 Temperature Pulse Rate 93 92 92 Pulse Rate [Right Pulse Oximeter] Respiratory Rate Blood Pressure 121/68 Blood Pressure [Ri ght Upper Arm] Pulse Oximetry 95 98 [facility] 19:30 07/29/22 20:04 Temperature Pulse Rate 88 90 Pulse Rate [Right Pulse Oximeter] Respiratory Rate Blood Pressure Blood Pressure [Ri ght Upper Arm] Pulse Oximetry 95 97 Oxygen Delivery [facility] Hospitalist - H&P: Result Labs Labs: Short CBC 07/29/22 Range/Units 11:08 WBC 15.06 H (4.50-11.00) K/uL Hgb 13.3 L (13.5-17.5) gm/dL Hct 39.5 (37.0-53.0) % Plt Count 320 (140-440) K/uL BMP 07/29/22 11:08 Sodium 134 L Potassium 4.0 Chloride 102 Carbon Dioxide 26 BUN 9 Creatinine 0.7 Glucose 145 H Calcium 8.5 Liver Function 07/29/22 Range/Units 11:08 Total Bilirubin 2.2 H (0.1-1.5) mg/dL Direct Bilirubin 0.7 H (0.0-0.5) mg/dL AST 69 H (12-35) U/L ALT 103 H (4-50) U/L Alkaline Phosphatase 260 H (40-150) U/L Albumin 3.9 (3.3-5.0) g/dL Urine 07/29/22 Range/Units 12:08 Urine Color Red A (Yellow) Urine Appearance Clear (Clear) Urine pH 7.0 (5.0-8.5) Ur Specific [place] 1.020 (1.000-1.030) Urine Protein 2+ A (Negative) Urine Glucose (UA) Trace A (Negative) Assessment and Plan Assessment and plan (1) Headache: Problem comment: Brain MRI negative. No meningeal signs. Likely a symptom of the more broad diagnosis. Will continue with antibiotics, using IV Zosyn. I will also add azithromycin. Status: Acute (2) Fever: Problem comment: -Wide differential potentially. My 1st thought is diverticulitis and we will treat for this. However, he really has not had any abdominal pain. I'll start with IV fluids, antibiotics and clear liquid diet. I am also worried about a possible bacteremia or sepsis picture given his long illness, fever tonight, diaphoresis tonight. Unfortunately blood cultures are couple of hours behind the 1st dose of antibiotics, we will follow these though. -However, given the lung findings, liver findings I have ordered QuantiFERON gold, HIV, RPR, A1c, GGT, procalcitonin, lipase. -I reviewed this case with our general surgeon and she recommended outpatient colonoscopy, patient has never had this procedure. Will likely need an outpatient GI referral for liver biopsy. Status: Acute (3) Diverticulitis: Problem comment: One dose of ertapenem in the ED, will start Zosyn. Trend labs. Status: Acute (4) Liver lesion: Problem comment: -outpatient workup Status: Acute
[2022-07-29 21:32] LABS: Lipase* 274 U/L (23-300)
[2022-07-29 21:42] LABS: Hemoglobin A1C* 5.55 % (0-5.6)
--- NOTE | 2022-07-29 21:44 | PC.NURSE ---
LAB UPDATED: On add on tests, states some are sendouts and will get more blood with morning draw.
[2022-07-29 21:58] LABS: Gamma Glutamyl Transpeptidase* 398 U/L (8-55)
[2022-07-29] MEDS: PANTOPRAZOLE SODIUM 40 MG INJ IVP (22:13)
[2022-07-29] MEDS: SODIUM CHLORIDE 0.9 % (FLUSH) 10 ML SYRINGE 5 ML IVF (22:13)
[2022-07-29] MEDS: 0.9 % SODIUM CHLORIDE 1000 ml 1,000 ML 500 ML IV (22:13)
[2022-07-29] MEDS: ENOXAPARIN 40 MG/0.4 ML INJ SUBCUT (22:14)
[2022-07-29 22:16] LABS: Procalcitonin* 0.38 ng/mL (<0.50)
[2022-07-29] MEDS: PIPERACILLIN/TAZOBACTAM 3.375 GM in 0.9 % SODIUM CHLORIDE Mini-bag 100 ML IVPB (22:43)
[2022-07-29 22:55] LABS: HIV 1/2/P24 Combo Screen* Negative (Negative)
[2022-07-30] VITALS (9 sets, daily range): BP systolic 87–117; BP diastolic 45–72; PULSE 60–81; RESP 16–18; TEMP 36.3–38.4; O2SAT 95–98
[2022-07-30] MEDS: 0.9 % SODIUM CHLORIDE 1000 ml 1,000 ML 125 ML IV ×2 (00:37→08:42)
--- NOTE | 2022-07-30 04:02 | PC.NURSE ---
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 BP soft but denies s&s, tele 80's nsr, temp normalized, tolerating clear liquids. Unaware of Liver results, aware needs stool cultures/samples.
[2022-07-30] MEDS: KETOROLAC 30 MG/ML inj IVP ×3 (04:31→21:16)
[2022-07-30] MEDS: PIPERACILLIN/TAZOBACTAM 3.375 GM in 0.9 % SODIUM CHLORIDE Mini-bag 100 ML IVPB ×4 (04:31→22:13)
[2022-07-30 07:00] LABS: HCO3 VBG 26 mmol/L (21-28); Ionized Calcium* 1.06 mmol/L (1.11-1.30); PCO2 VBG 45 mmHG (40-50); PO2 VBG 38.1 mmHG (25-47); pH VBG 7.366 (7.32-7.43)
[2022-07-30 07:14] LABS: Basophils Percent Auto 0.1 % (0.0-3.0); Eosinophils Percent Auto 0.1 % (0.0-7.0); Hematocrit 35.5 % (37.0-53.0); Hemoglobin* 11.6 gm/dL (13.5-17.5); Immature Granulocytes Pct Auto 0.8 %; Lymphocytes Percent Auto 8.4 % (20-44); Mean Corpuscular HGB Conc 33 gm/dL (32-36); Mean Corpuscular Hemoglobin 30 pg (26-34); Mean Corpuscular Volume 91 fL (80-100); Monocytes Percent Auto 8.7 % (0.0-11.0); Neutrophils Percent Auto 81.9 % (42.0-72.0); Platelet Count* 277 K/uL (140-440); RDW Coefficient of Variation % 12.7 % (11.5-15.5); Red Blood Count 3.89 m/uL (4.30-5.90); White Blood Count* 14.09 K/uL (4.50-11.00)
[2022-07-30 07:15] LABS: INR 1.25 (0.91-1.10); Prothrombin Time 16.5 Seconds
[2022-07-30 07:30] LABS: Slide Review Reflex No
[2022-07-30 07:39] LABS: Chloride* 109 mmol/L (96-114); Sodium* 136 mmol/L (135-149)
[2022-07-30 07:40] LABS: Potassium* 4.7 mmol/L (3.6-5.1)
[2022-07-30 07:43] LABS: Alkaline Phosphatase* 183 U/L (40-150); Aspartate Amino Transferase* 54 U/L (12-35); Bilirubin Total* 2.4 mg/dL (0.1-1.5); Blood Urea Nitrogen* 12 mg/dL (7-30); Calcium* 7.5 mg/dL (8.4-10.6); Carbon Dioxide* 25 mmol/L (20-32); Creatinine* 0.7 mg/dL (0.5-1.5); Est. Creatinine Clearance* 103.72; Estimated Glomerular Filt Rate 109 ml/min; Gamma Glutamyl Transpeptidase* 323 U/L (8-55); Glucose* 113 mg/dL (60-115); Lipase* 102 U/L (23-300); Total Protein* 6.3 g/dL (6.0-8.3)
[2022-07-30 07:44] LABS: Alanine Aminotransferase* 81 U/L (4-50); Magnesium* 2.5 mg/dL (1.5-2.6)
[2022-07-30 07:54] LABS: Procalcitonin* 0.47 ng/mL (<0.50)
[2022-07-30] MEDS: ACETAMINOPHEN 325 MG TABLET PO ×2 (08:12→14:20)
[2022-07-30 08:23] LABS: C Reactive Protein* 19.8 mg/dL (0.5-1.0); Troponin I* < 0.01 ng/mL (0.01-0.04)
--- NOTE | 2022-07-30 12:32 | P.IMPN_ITS ---
Progress Note: A&P Assessment and plan (1) Diverticulitis: Problem details: One dose of ertapenem in the ED; transitioned to zosyn Status: Acute Assessment and Plan: continue zosyn; can be transitioned to augmentin at discharge Colonic diverticulosis with wall thickening and inflammation involving the distal descending colon/sigmoid junction. Finding concerning for to acute diverticulitis although with the hepatic lesions as discussed above underlying colonic mass will need to be excluded. Additionally, extending into the retroperitoneal periaortic region there is soft tissue inflammation and a few subcentimeter mildly prominent lymph nodes. Finding may be reactive but metastatic disease not excluded. (2) Headache: Problem details: Brain MRI negative. No meningeal signs. Status: Acute (3) Liver lesion: Problem details: -Etiology unclear; recommend outpatient GI/Hepatology referral at discharge; need to r/o malignancy Multiple hepatic lesions, with signal and enhancement characteristics which remain concerning for metastatic disease. MRI Abdomen and CT AP showing Several scattered heterogeneous ill-defined lesions throughout the liver with the largest in the left hepatic lobe measuring 3.1 x 2.9 cm and right hepatic lobe measuring 3.3 x 3.1 cm. Findings are highly concerning for metastatic disease. Colonic diverticulosis with wall thickening and inflammation involving the distal descending colon/sigmoid junction. Finding concerning for to acute diverticulitis although with the hepatic lesions as discussed above underlying colonic mass will need to be excluded. Status: Acute Plan For today -ADAT -Urine Cx/BCx NGTD -continue antibiotics -continue IVF -LFTs improving; trend anticipate dc home 1-2 days Subjective Date Seen: 07/30/22 Interval history: denies nausea and vomiting minimal abdominal pain no fevers today denies cp, sob Exam Narrative: Exam Narrative: Gen: no acute distress HEENT: NCAT EOMI mmm CV: RRR normal s1 s2 Lungs: CTAB Abd: Soft,nt, nd Neuro: Alert, oriented, CN grossly intact; nonfocal screening?exam Psych: appropriate affect MSK: age appropriate muscle mass Skin; Warm, dry no rash on face Const: Vital Signs, click to edit/add: Vital Signs - 24 hr 07/29/22 12:45 07/29/22 13:00 07/29/22 13:02 Temperature Pulse Rate 77 73 72 Pulse Rate [Left P ulse Oximeter] Pulse Rate [orthos tatic lying Left P ulse Oximeter] Pulse Rate [orthos tatic sitting Left Pulse Oximeter] Pulse Rate [orthos tatic standing Lef t Pulse Oximeter] Respiratory Rate Blood Pressure 105/56 L Blood Pressure [Ri ght Arm] Blood Pressure [or thostatic lying Le ft Arm] Blood Pressure [or thostatic sitting Left Arm] Blood Pressure [or thostatic standing Left Arm] Pulse Oximetry 95 97 97 Oxygen Delivery Me thod 07/29/22 13:15 07/29/22 15:15 07/29/22 15:17 Temperature Pulse Rate 73 72 72 Pulse Rate [Left P ulse Oximeter] Pulse Rate [orthos tatic lying Left P ulse Oximeter] Pulse Rate [orthos tatic sitting Left Pulse Oximeter] Pulse Rate [orthos tatic standing Lef t Pulse Oximeter] Respiratory Rate Blood Pressure 110/69 Blood Pressure [Ri ght Arm] Blood Pressure [or thostatic lying Le ft Arm] Blood Pressure [or thostatic sitting Left Arm] Blood Pressure [or thostatic standing Left Arm] Pulse Oximetry 94 97 99 Oxygen Delivery Mn thod 07/29/22 15:30 07/29/22 15:45 07/29/22 16:00 Temperature Pulse Rate 75 74 73 Pulse Rate [Left P ulse Oximeter] Pulse Rate [orthos tatic lying Left P ulse Oximeter] Pulse Rate [orthos tatic sitting Left Pulse Oximeter] Pulse Rate [orthos tatic standing Lef t Pulse Oximeter] Respiratory Rate Blood Pressure Blood Pressure [Ri ght Arm] Blood Pressure [or thostatic lying Le ft Arm] Blood Pressure [or thostatic sitting Left Arm] Blood Pressure [or thostatic standing Left Arm] Pulse Oximetry 98 99 97 Oxygen Delivery Mn thod 07/29/22 16:17 07/29/22 16:30 07/29/22 19:14 Temperature 101.3 F H Pulse Rate 81 77 Pulse Rate [Left P ulse Oximeter] Pulse Rate [orthos tatic lying Left P ulse Oximeter] Pulse Rate [orthos tatic sitting Left Pulse Oximeter] Pulse Rate [orthos tatic standing Lef t Pulse Oximeter] Respiratory Rate Blood Pressure Blood Pressure [Ri ght Arm] Blood Pressure [or thostatic lying Le ft Arm] Blood Pressure [or thostatic sitting Left Arm] Blood Pressure [or thostatic standing Left Arm] Pulse Oximetry 100 96 Oxygen Delivery Me thod 07/29/22 16:45 07/29/22 17:00 07/29/22 17:15 Temperature Pulse Rate 81 88 84 Pulse Rate [Left P ulse Oximeter] Pulse Rate [orthos tatic lying Left P ulse Oximeter] Pulse Rate [orthos tatic sitting Left Pulse Oximeter] Pulse Rate [orthos tatic standing Lef t Pulse Oximeter] Respiratory Rate Blood Pressure Blood Pressure [Ri ght Arm] Blood Pressure [or thostatic lying Le ft Arm] Blood Pressure [or thostatic sitting Left Arm] Blood Pressure [or thostatic standing Left Arm] Pulse Oximetry 99 96 97 Oxygen Delivery Me thod 07/29/22 17:30 07/29/22 17:45 07/29/22 19:13 Temperature Pulse Rate 86 88 93 Pulse Rate [Left P ulse Oximeter] Pulse Rate [orthos tatic lying Left P ulse Oximeter] Pulse Rate [orthos tatic sitting Left Pulse Oximeter] Pulse Rate [orthos tatic standing Lef t Pulse Oximeter] Respiratory Rate Blood Pressure Blood Pressure [Ri ght Arm] Blood Pressure [or thostatic lying Le ft Arm] Blood Pressure [or thostatic sitting Left Arm] Blood Pressure [or thostatic standing Left Arm] Pulse Oximetry 96 97 95 Oxygen Delivery Me thod 07/29/22 19:14 07/29/22 19:15 07/29/22 19:30 Temperature Pulse Rate 92 92 88 Pulse Rate [Left P ulse Oximeter] Pulse Rate [orthos tatic lying Left P ulse Oximeter] Pulse Rate [orthos tatic sitting Left Pulse Oximeter] Pulse Rate [orthos tatic standing Lef t Pulse Oximeter] Respiratory Rate Blood Pressure 121/68 Blood Pressure [Ri ght Arm] Blood Pressure [or thostatic lying Le ft Arm] Blood Pressure [or thostatic sitting Left Arm] Blood Pressure [or thostatic standing Left Arm] Pulse Oximetry 98 97 95 Oxygen Delivery Me thod 07/29/22 20:04 07/29/22 20:57 07/29/22 20:59 Temperature Pulse Rate 90 Pulse Rate [Left P ulse Oximeter] Pulse Rate [orthos tatic lying Left P ulse Oximeter] Pulse Rate [orthos tatic sitting Left Pulse Oximeter] Pulse Rate [orthos tatic standing Lef t Pulse Oximeter] Respiratory Rate Blood Pressure Blood Pressure [Ri ght Arm] Blood Pressure [or thostatic lying Le ft Arm] Blood Pressure [or thostatic sitting Left Arm] Blood Pressure [or thostatic standing Left Arm] Pulse Oximetry 97 97 98 Oxygen Delivery Me thod Room Air 07/29/22 21:46 07/29/22 21:52 07/29/22 22:57 Temperature 99.3 F Pulse Rate Pulse Rate [Left P ulse Oximeter] Pulse Rate [orthos tatic lying Left P ulse Oximeter] 95 Pulse Rate [orthos tatic sitting Left Pulse Oximeter] 99 Pulse Rate [orthos tatic standing Lef t Pulse Oximeter] 107 H Respiratory Rate 18 Blood Pressure Blood Pressure [Ri ght Arm] 103/79 Blood Pressure [or thostatic lying Le ft Arm] 109/76 Blood Pressure [or thostatic sitting Left Arm] 105/81 Blood Pressure [or thostatic standing Left Arm] 113/72 Pulse Oximetry 98 95 Oxygen Delivery Me thod Room Air Room Air 07/29/22 22:59 07/30/22 01:52 07/30/22 03:59 Temperature 98.5 F 98.1 F Pulse Rate Pulse Rate [Left P ulse Oximeter] Pulse Rate [orthos tatic lying Left P ulse Oximeter] Pulse Rate [orthos tatic sitting Left Pulse Oximeter] Pulse Rate [orthos tatic standing Lef t Pulse Oximeter] Respiratory Rate 18 18 18 Blood Pressure Blood Pressure [Ri ght Arm] 96/56 L 101/72 Blood Pressure [or thostatic lying Le ft Arm] Blood Pressure [or thostatic sitting Left Arm] Blood Pressure [or thostatic standing Left Arm] Pulse Oximetry 95 95 Oxygen Delivery Me thod Room Air Room Air 07/30/22 08:19 07/30/22 08:19 07/30/22 11:00 Temperature 98.1 F 97.7 F Pulse Rate Pulse Rate [Left P ulse Oximeter] 62 61 Pulse Rate [orthos tatic lying Left P ulse Oximeter] Pulse Rate [orthos tatic sitting Left Pulse Oximeter] Pulse Rate [orthos tatic standing Lef t Pulse Oximeter] Respiratory Rate 18 16 Blood Pressure Blood Pressure [Ri ght Arm] 112/61 114/66 Blood Pressure [or thostatic lying Le ft Arm] Blood Pressure [or thostatic sitting Left Arm] Blood Pressure [or thostatic standing Left Arm] Pulse Oximetry 98 98 97 Oxygen Delivery Me thod Room Air Room Air Room Air Labs Labs: Laboratory Results - last 24 hr 07/29/22 07/29/22 07/29/22 11:08 11:08 11:08 WBC RBC Hgb Hct MCV MCH MCHC RDW Coeff of Eusebio Plt Count Neut % (Auto) Lymph % (Auto) [place] % (Auto) Eos % (Auto) Baso % (Auto) Neut # (Auto) Lymph # (Auto) [place] # (Auto) Eos # (Auto) Baso # (Auto) ESR 79 H INR VBG pH VBG pCO2 VBG pO2 VBG HCO3 Sodium Potassium Chloride Carbon Dioxide BUN Creatinine Estimated Creat Clear Estimated GFR Glucose Hemoglobin A1c 5.55 Calcium Ionized Calcium Shy Magnesium Ferritin Total Bilirubin GGT 398 H AST ALT Alkaline Phosphatase Troponin I C-Reactive Protein Total Protein Albumin Lipase 274 Procalcitonin 0.38 TSH Urine Color Urine Appearance Urine pH Ur Specific [place] Urine Protein Urine Glucose (UA) Urine Ketones Urine Blood Urine Nitrite Urine Bilirubin Urine Urobilinogen Ur Leukocyte Esterase Urine RBC Urine WBC Ur Squamous Epith Cells Urine Bacteria HIV 1&2 Ab/P24 Ag 4thGn 07/29/22 07/29/22 07/30/22 11:08 12:08 05:36 WBC 14.09 H RBC 3.89 L Hgb 11.6 L Hct 35.5 L MCV 91 MCH 30 MCHC 33 RDW Coeff of Eusebio 12.7 Plt Count 277 Neut % (Auto) 81.9 H Lymph % (Auto) 8.4 L [place] % (Auto) 8.7 Eos % (Auto) 0.1 Baso % (Auto) 0.1 Neut # (Auto) 11.50 H Lymph # (Auto) 1.20 [place] # (Auto) 1.20 H Eos # (Auto) 0.00 Baso # (Auto) 0.00 ESR INR VBG pH VBG pCO2 VBG pO2 VBG HCO3 Sodium Potassium Chloride Carbon Dioxide BUN Creatinine Estimated Creat Clear Estimated GFR Glucose Hemoglobin A1c Calcium Ionized Calcium Shy Magnesium Ferritin Total Bilirubin GGT AST ALT Alkaline Phosphatase Troponin I C-Reactive Protein Total Protein Albumin Lipase Procalcitonin TSH Urine Color Red A Urine Appearance Clear Urine pH 7.0 Ur Specific [place] 1.020 Urine Protein 2+ A Urine Glucose (UA) Trace A Urine Ketones Negative Urine Blood Negative Urine Nitrite Positive A Urine Bilirubin 2+ A Urine Urobilinogen >=8.0 Ur Leukocyte Esterase Negative Urine RBC 0-2 Urine WBC 0-2 Ur Squamous Epith Cells Few Urine Bacteria Few A HIV 1&2 Ab/P24 Ag 4thGn Negative 07/30/22 07/30/22 07/30/22 05:36 05:36 05:36 WBC RBC Hgb Hct MCV MCH MCHC RDW Coeff of Eusebio Plt Count Neut % (Auto) Lymph % (Auto) [place] % (Auto) Eos % (Auto) Baso % (Auto) Neut # (Auto) Lymph # (Auto) [place] # (Auto) Eos # (Auto) Baso # (Auto) ESR INR 1.25 H VBG pH 7.366 VBG pCO2 45 VBG pO2 38.1 VBG HCO3 26 Sodium 136 Potassium 4.7 Chloride 109 Carbon Dioxide 25 BUN 12 Creatinine 0.7 Estimated Creat Clear 103.72 Estimated GFR 109 Glucose 113 Hemoglobin A1c Calcium 7.5 L Ionized Calcium Shy 1.06 L Magnesium 2.5 Ferritin Total Bilirubin 2.4 H GGT 323 H AST 54 H ALT 81 H Alkaline Phosphatase 183 H Troponin I < 0.01 L C-Reactive Protein 19.8 H Total Protein 6.3 Albumin 3.0 L Lipase 102 Procalcitonin 0.47 TSH Urine Color Urine Appearance Urine pH Ur Specific [place] Urine Protein Urine Glucose (UA) Urine Ketones Urine Blood Urine Nitrite Urine Bilirubin Urine Urobilinogen Ur Leukocyte Esterase Urine RBC Urine WBC Ur Squamous Epith Cells Urine Bacteria HIV 1&2 Ab/P24 Ag 4thGn 07/30/22 07/30/22 05:36 05:36 WBC RBC Hgb Hct MCV MCH MCHC RDW Coeff of Eusebio Plt Count Neut % (Auto) Lymph % (Auto) [place] % (Auto) Eos % (Auto) Baso % (Auto) Neut # (Auto) Lymph # (Auto) [place] # (Auto) Eos # (Auto) Baso # (Auto) ESR INR VBG pH VBG pCO2 VBG pO2 VBG HCO3 Sodium Potassium Chloride Carbon Dioxide BUN Creatinine Estimated Creat Clear Estimated GFR Glucose Hemoglobin A1c Calcium Ionized Calcium Shy Magnesium Ferritin 540.0 H Total Bilirubin GGT AST ALT Alkaline Phosphatase Troponin I C-Reactive Protein Total Protein Albumin Lipase Procalcitonin TSH 1.510 Urine Color Urine Appearance Urine pH Ur Specific [place] Urine Protein Urine Glucose (UA) Urine Ketones Urine Blood Urine Nitrite Urine Bilirubin Urine Urobilinogen Ur Leukocyte Esterase Urine RBC Urine WBC Ur Squamous Epith Cells Urine Bacteria HIV 1&2 Ab/P24 Ag 4thGn Cancelled
[2022-07-30] MEDS: 0.9 % SODIUM CHLORIDE 1000 ml 1,000 ML 100 ML IV ×2 (13:37→20:32)
--- NOTE | 2022-07-30 18:43 | PC.NURSE ---
Pt alert and oriented, pleasant and cooperative this shift. Vitals WDL, except temp this evening was 100.2 oral, so MD ordered repeat BC and pending. Pt stated improvement in headache throughout shift, received PRN Tylenol and scheduled Toradol, refused AM Toradol but took afternoon dose. Echo completed this shift, results in chart. Pt voiding ind in room w/o issue. No BM this shift to use for testing. Family at bedside this shift. Pt continues on clear liquids, tolerating. Continuing on IV abx of Zosyn and IVF of NS at 100ml/hr. SCDs on while in bed but pt removes intermit to move around. Call light within reach, pt able to verbalize needs.
[2022-07-30 21:00] LABS: Hep A Ab, IgM Negative (Negative); Hep B Core Ab, IgM Negative (Negative); Hep B Surface Antigen Negative (Negative); Hep C Ab by CIA Index 0.08 IV; Hep C Ab by CIA Interp Negative (Negative)
[2022-07-30] MEDS: SODIUM CHLORIDE 0.9 % (FLUSH) 10 ML SYRINGE 5 ML IVF (21:16)
[2022-07-30] MEDS: ENOXAPARIN 40 MG/0.4 ML INJ SUBCUT (21:16)
[2022-07-31] VITALS (9 sets, daily range): BP systolic 104–126; BP diastolic 56–69; PULSE 64–76; RESP 16–18; TEMP 36.6–37.3; O2SAT 97–98
[2022-07-31] MEDS: KETOROLAC 30 MG/ML inj IVP ×4 (03:56→21:14)
[2022-07-31] MEDS: PIPERACILLIN/TAZOBACTAM 3.375 GM in 0.9 % SODIUM CHLORIDE Mini-bag 100 ML IVPB ×4 (04:46→22:49)
--- NOTE | 2022-07-31 06:25 | PC.NURSE ---
: pleasant and cooperative. Pt c/o of SCHMIDT, scheduled Toradol given, offered relief, pt stated he is ?more better?. No c/o abd pain or tenderness. bowels active. Pt was diaphoretic, new gown provided, pt afebrile and stated he was feeling fine. VSS. No BM, still needing stool sample.
[2022-07-31] MEDS: 0.9 % SODIUM CHLORIDE 1000 ml 1,000 ML 100 ML IV (08:21)
[2022-07-31 09:50] LABS: Basophils Absolute Auto 0.01 K/uL (0.00-0.30); Basophils Percent Auto 0.1 % (0.0-3.0); Eosinophils Absolute Auto 0.01 K/uL (0.00-0.50); Eosinophils Percent Auto 0.1 % (0.0-7.0); Hematocrit 36.2 % (37.0-53.0); Hemoglobin* 11.9 gm/dL (13.5-17.5); Immature Granulocytes Abs Auto 0.07 K/uL (0.00-0.30); Immature Granulocytes Pct Auto 0.6 %; Immature Reticulocyte Fraction 8.2 % (2.3-13.4); Lymphocytes Percent Auto 9.4 % (20-44); Mean Corpuscular HGB Conc 33 gm/dL (32-36); Mean Corpuscular Hemoglobin 30 pg (26-34); Mean Corpuscular Volume 91 fL (80-100); Monocytes Percent Auto 6.2 % (0.0-11.0); Neutrophils Percent Auto 83.6 % (42.0-72.0); Platelet Count* 341 K/uL (140-440); RDW Coefficient of Variation % 12.8 % (11.5-15.5); Reticulocyte Hemoglobin Equivi 28.2 pg (29.0-35.0); Reticulocyte Percent 1.8 % (0.5-2.0); Reticulocytes Absolute 0.07 # (0.03-0.08); White Blood Count* 10.91 K/uL (4.50-11.00)
[2022-07-31 09:54] LABS: Alanine Aminotransferase* 58 U/L (4-50); Alkaline Phosphatase* 184 U/L (40-150); Aspartate Amino Transferase* 32 U/L (12-35); Bilirubin Direct* 0.5 mg/dL (0.0-0.5); Bilirubin Total* 1.3 mg/dL (0.1-1.5); Total Protein* 6.2 g/dL (6.0-8.3)
[2022-07-31 09:57] LABS: Slide Review Reflex No
--- NOTE | 2022-07-31 09:57 | PM.IMPN1 ---
Progress Note: A&P Assessment and plan (1) Diverticulitis: Problem details: One dose of ertapenem in the ED; transitioned to zosyn Status: Acute Assessment and Plan: For 07/31: DC IVF, advance diet to regular; continue zosyn; WBC now normal; BG NGTD; UCx NGTD; likely can discharge on augmentin potentially on 08/01; recommend fever free for 24 hours (2) Sepsis: Problem details: Secondary to Diverticulitis; Fever+Leukocytosis Status: Acute (3) Liver lesion: Problem details: -Etiology unclear; recommend outpatient GI/Hepatology referral at discharge; need to r/o malignancy Multiple hepatic lesions, with signal and enhancement characteristics which remain concerning for metastatic disease. MRI Abdomen and CT AP showing Several scattered heterogeneous ill-defined lesions throughout the liver with the largest in the left hepatic lobe measuring 3.1 x 2.9 cm and right hepatic lobe measuring 3.3 x 3.1 cm. Findings are highly concerning for metastatic disease. Colonic diverticulosis with wall thickening and inflammation involving the distal descending colon/sigmoid junction. Finding concerning for to acute diverticulitis although with the hepatic lesions as discussed above underlying colonic mass will need to be excluded. Status: Acute Assessment and Plan: Needs outpatient GI referral (recommend [facility] referral at discharge) Also Needs PCP referral lives in [place]; Recommend [place] [facility] or [facility] in [place] Subjective Date Seen: 07/31/22 Interval history: patient had fever yesterday afternoon This morning temp of 99.1 This morning denies headache, nausea, vomiting, abdominal pain WBC normalized today Exam Narrative: Exam Narrative: Gen: no acute distress HEENT: NCAT EOMI mmm CV: RRR normal s1 s2 Lungs: CTAB Abd: Soft,nt, nd Neuro: Alert, oriented, CN grossly intact; nonfocal screening?exam Psych: appropriate affect MSK: age appropriate muscle mass Skin; Warm, dry no rash on face Const: Vital Signs, click to edit/add: Vital Signs - 24 hr 07/30/22 11:00 07/30/22 16:20 07/30/22 15:00 Temperature 97.7 F 101.2 F H 98.9 F Pulse Rate [Left P ulse Oximeter] 61 81 Respiratory Rate 16 16 Blood Pressure [Ri ght Arm] 114/66 117/62 Pulse Oximetry 97 96 Oxygen Delivery Me thod Room Air Room Air 02/11/23 15:00 07/30/22 19:00 07/30/22 22:20 Temperature 97.6 F Pulse Rate [Left P ulse Oximeter] 66 60 Respiratory Rate 18 18 Blood Pressure [Ri ght Arm] 87/45 L Pulse Oximetry 98 Oxygen Delivery Or thod Room Air Room Air 07/30/22 22:20 07/30/22 22:20 07/30/22 20:59 Temperature 97.3 F L Pulse Rate [Left P ulse Oximeter] 60 Respiratory Rate 18 18 Blood Pressure [Ri ght Arm] 94/52 L Pulse Oximetry 98 98 98 Oxygen Delivery Or thod Room Air Room Air 07/31/22 03:00 Temperature 99.1 F Pulse Rate [Left P ulse Oximeter] 76 Respiratory Rate 18 Blood Pressure [Ri ght Arm] 126/67 Pulse Oximetry 97 Oxygen Delivery Or thod Room Air Labs Labs: Laboratory Results - last 24 hr 07/29/22 07/31/22 11:08 09:29 Total Bilirubin 1.3 Direct Bilirubin 0.5 AST 32 ALT 58 H Alkaline Phosphatase 184 H Total Protein 6.2 Albumin 3.0 L Hepatitis A IgM Ab Negative Hep Bs Antigen Negative Hep B Core IgM Ab Negative Hep C Ab Index (VELASQUEZ) 0.08 Hep C Ab Interp VELASQUEZ Negative Hepatitis Interpret See Note
[2022-07-31] MEDS: SODIUM CHLORIDE 0.9 % (FLUSH) 10 ML SYRINGE 5 ML IVF ×2 (10:29→21:14)
[2022-07-31 11:39] LABS: Chloride* 108 mmol/L (96-114); Potassium* 4.2 mmol/L (3.6-5.1); Sodium* 135 mmol/L (135-149)
[2022-07-31 11:42] LABS: Blood Urea Nitrogen* 9 mg/dL (7-30); Carbon Dioxide* 25 mmol/L (20-32); Creatinine* 0.6 mg/dL (0.5-1.5); Est. Creatinine Clearance* 121.01; Estimated Glomerular Filt Rate 114 ml/min
[2022-07-31 11:43] LABS: Calcium* 7.6 mg/dL (8.4-10.6); Glucose* 127 mg/dL (60-115)
[2022-07-31 12:00] LABS: Procalcitonin* 0.55 ng/mL (<0.50)
--- NOTE | 2022-07-31 18:30 | PC.NURSE ---
Pt alert and oriented, pleasant and cooperative. Pt states he feels much better today, diet advanced to regular per MD. Pt eating smaller meals today but tolerating without issue. Vitals WDL, on RA, afebrile. Pt had shower this afternoon, changed clothes, fresh linen. Family visiting in late AM. IVF discontinued per order, continues on scheduled IV Zosyn. Pt voiding without difficulty, still no stool sample. Pt continues to have an intermit headache but rating highest pain level of a 3, pt states overall improvement. Call light within reach and pt using appropriately.
[2022-07-31 18:32] LABS: Rapid Plasma Reagin (RPR) Non Reactive (Non Reactive)
[2022-07-31] MEDS: ENOXAPARIN 40 MG/0.4 ML INJ SUBCUT (21:14)
[2022-08-01 02:50] VITALS: TEMP 37.1
[2022-08-01] MEDS: ACETAMINOPHEN 325 MG TABLET PO (02:50)
[2022-08-01 03:00] VITALS: BP 141/69; PULSE 67; RESP 16; TEMP 36.9; O2SAT 97
[2022-08-01] MEDS: PIPERACILLIN/TAZOBACTAM 3.375 GM in 0.9 % SODIUM CHLORIDE Mini-bag 100 ML IVPB ×2 (04:22→10:43)
[2022-08-01] MEDS: KETOROLAC 30 MG/ML inj IVP ×2 (04:23→09:48)
[2022-08-01 04:40] VITALS: TEMP 36.9
[2022-08-01 05:59] LABS: Basophils Absolute Auto 0.02 K/uL (0.00-0.30); Basophils Percent Auto 0.2 % (0.0-3.0); Eosinophils Absolute Auto 0.02 K/uL (0.00-0.50); Eosinophils Percent Auto 0.2 % (0.0-7.0); Hematocrit 34.3 % (37.0-53.0); Hemoglobin* 11.4 gm/dL (13.5-17.5); Immature Granulocytes Abs Auto 0.05 K/uL (0.00-0.30); Immature Granulocytes Pct Auto 0.5 %; Lymphocytes Percent Auto 9.8 % (20-44); Mean Corpuscular HGB Conc 33 gm/dL (32-36); Mean Corpuscular Hemoglobin 30 pg (26-34); Mean Corpuscular Volume 89 fL (80-100); Neutrophils Percent Auto 83.3 % (42.0-72.0); Platelet Count* 364 K/uL (140-440); RDW Coefficient of Variation % 12.6 % (11.5-15.5); Red Blood Count 3.84 m/uL (4.30-5.90); White Blood Count* 9.59 K/uL (4.50-11.00)
[2022-08-01 06:00] LABS: Slide Review Reflex No
[2022-08-01 06:08] LABS: Albumin* 2.8 g/dL (3.3-5.0); Chloride* 108 mmol/L (96-114)
[2022-08-01 06:09] LABS: Potassium* 3.7 mmol/L (3.6-5.1); Sodium* 137 mmol/L (135-149)
[2022-08-01 06:11] LABS: Aspartate Amino Transferase* 46 U/L (12-35); Bilirubin Direct* 0.5 mg/dL (0.0-0.5); Bilirubin Total* 1.1 mg/dL (0.1-1.5); Blood Urea Nitrogen* 6 mg/dL (7-30); Carbon Dioxide* 26 mmol/L (20-32); Creatinine* 0.7 mg/dL (0.5-1.5); Est. Creatinine Clearance* 103.72; Estimated Glomerular Filt Rate 109 ml/min
--- NOTE | 2022-08-01 06:11 | PC.NURSE ---
19-: pleasant and cooperative. Pts shirt became moist with sweat during the night, pt changed into a new shirt. Highest temp 98.8, Tylenol given. No c/o pain. VSS.
[2022-08-01 06:12] LABS: Alanine Aminotransferase* 57 U/L (4-50); Alkaline Phosphatase* 191 U/L (40-150); Calcium* 7.7 mg/dL (8.4-10.6); Glucose* 115 mg/dL (60-115)
[2022-08-01 07:00] VITALS: BP 120/67; PULSE 70; RESP 18; TEMP 36.6; O2SAT 99
--- NOTE | 2022-08-01 09:20 | PM.IMPN1 ---
Progress Note: A&P Assessment and plan (1) Diverticulitis: Problem details: - One dose of ertapenem in the ED; transitioned to Zosyn (07/29) - potential underlying malignancy; colonoscopy scheduled as an inpatient for 08/[address] So Status: Acute (2) Headache: Problem details: - resolved after admission - Brain MRI negative - titres pending for tick-borne diseases Status: Acute (3) Liver lesion: Problem details: - Etiology unclear (concerning for malignancy). Pending results of colonoscopy, may need biopsy of these lesions vs outpatient GI followup Multiple hepatic lesions, with signal and enhancement characteristics which remain concerning for metastatic disease. MRI Abdomen and CT AP showing Several scattered heterogeneous ill-defined lesions throughout the liver with the largest in the left hepatic lobe measuring 3.1 x 2.9 cm and right hepatic lobe measuring 3.3 x 3.1 cm. Findings are highly concerning for metastatic disease. Colonic diverticulosis with wall thickening and inflammation involving the distal descending colon/sigmoid junction. Finding concerning for to acute diverticulitis although with the hepatic lesions as discussed above underlying colonic mass will need to be excluded. Status: Acute (4) Anemia: Problem details: - normocytic, baseline unclear Status: Acute (5) Elevated LFTs: Problem details: - likely related to #3 above Status: Acute Plan - per above - continue Zosyn - on Lovenox for ppx (holding Lovenox tonight for colonoscopy on 08/02) - likely home tomorrow pending colonoscopy results Subjective Date Seen: 08/01/22 Interval history: No acute events overnight. Mikhail is feeling good today. He has no abdominal pain. His headache has resolved. He is amenable to inpatient colonoscopy to workup his diverticulitis vs malignancy. Exam Narrative: Exam Narrative: GEN: Alert and oriented appears nontoxic. He is sitting comfortably in bedside chair HEENT: EOMIs bilaterally, no scleral icterus CV: RRR, No concerning murmurs, rubs, or gallops R: LCTA bilaterally without concerning wheezing, air movement adequate Back: Normal contours, no concerning skin lesions Abdomen: Soft and nontender without distension or notable masses Ext: wwp, no concerning edema Skin: No concerning skin lesions or rashes on exposed skin Neuro: Nonfocal Psych: Appropriate Const: Vital Signs, click to edit/add: Vital Signs - 24 hr 07/31/22 11:00 07/31/22 15:00 07/31/22 15:00 Temperature 98.1 F 97.9 F Pulse Rate [Left P ulse Oximeter] 74 64 Respiratory Rate 16 16 Blood Pressure [Le ft Arm] Blood Pressure [Ri ght Arm] 109/64 104/56 L Pulse Oximetry 97 97 98 Oxygen Delivery Me thod Room Air Room Air Room Air 07/31/22 17:38 07/31/22 19:00 07/31/22 20:00 Temperature 98 F Pulse Rate [Left P ulse Oximeter] 69 Respiratory Rate 16 Blood Pressure [Le ft Arm] Blood Pressure [Ri ght Arm] 106/62 123/69 Pulse Oximetry 97 97 Oxygen Delivery Ma thod Room Air 07/31/22 21:57 07/31/22 21:57 07/31/22 23:00 Temperature 97.8 F Pulse Rate [Left P ulse Oximeter] 69 70 Respiratory Rate 16 16 16 Blood Pressure [Le ft Arm] Blood Pressure [Ri ght Arm] 125/64 Pulse Oximetry 97 97 Oxygen Delivery Ma thod Room Air Room Air 08/01/22 02:50 08/01/22 04:40 08/01/22 03:00 Temperature 98.8 F 98.4 F 98.4 F Pulse Rate [Left P ulse Oximeter] 67 Respiratory Rate 16 Blood Pressure [Le ft Arm] Blood Pressure [Ri ght Arm] 141/69 H Pulse Oximetry 97 Oxygen Delivery Ma thod Room Air 08/01/22 07:00 08/01/22 07:00 08/01/22 07:00 Temperature 97.8 F Pulse Rate [Left P ulse Oximeter] 70 70 Respiratory Rate 18 18 18 Blood Pressure [Le ft Arm] 120/67 Blood Pressure [Ri ght Arm] Pulse Oximetry 99 99 Oxygen Delivery Ma thod Room Air Room Air Labs Labs: Laboratory Results - last 24 hr 07/30/22 07/31/22 07/31/22 05:36 09:29 09:29 WBC 10.91 RBC 4.00 L Hgb 11.9 L Hct 36.2 L MCV 91 MCH 30 MCHC 33 RDW Coeff of Eusebio 12.8 Plt Count 341 Neut % (Auto) 83.6 H Lymph % (Auto) 9.4 L [place] % (Auto) 6.2 Eos % (Auto) 0.1 Baso % (Auto) 0.1 Neut # (Auto) 9.10 H Lymph # (Auto) 1.00 [place] # (Auto) 0.70 Eos # (Auto) 0.01 Baso # (Auto) 0.01 Absolute Retic 0.07 Percent Retic 1.8 Immature Retic Fraction 8.2 Retic Hgb Equivalent 28.2 L Sodium 135 Potassium 4.2 Chloride 108 Carbon Dioxide 25 BUN 9 Creatinine 0.6 Estimated Creat Clear 121.01 Estimated GFR 114 Glucose 127 H Calcium 7.6 L Total Bilirubin Direct Bilirubin AST ALT Alkaline Phosphatase Total Protein Albumin Procalcitonin 0.55 H RPR Screen Non Reactive 07/31/22 08/01/22 08/01/22 09:29 05:28 05:28 WBC 9.59 RBC 3.84 L Hgb 11.4 L Hct 34.3 L MCV 89 MCH 30 MCHC 33 RDW Coeff of Eusebio 12.6 Plt Count 364 Neut % (Auto) 83.3 H Lymph % (Auto) 9.8 L [place] % (Auto) 6.0 Eos % (Auto) 0.2 Baso % (Auto) 0.2 Neut # (Auto) 8.00 H Lymph # (Auto) 0.90 [place] # (Auto) 0.60 Eos # (Auto) 0.02 Baso # (Auto) 0.02 Absolute Retic Percent Retic Immature Retic Fraction Retic Hgb Equivalent Sodium 137 Potassium 3.7 Chloride 108 Carbon Dioxide 26 BUN 6 L Creatinine 0.7 Estimated Creat Clear 103.72 Estimated GFR 109 Glucose 115 Calcium 7.7 L Total Bilirubin 1.3 1.1 Direct Bilirubin 0.5 0.5 AST 32 46 H ALT 58 H 57 H Alkaline Phosphatase 184 H 191 H Total Protein 6.2 6.0 Albumin 3.0 L 2.8 L Procalcitonin RPR Screen
[2022-08-01] MEDS: SODIUM CHLORIDE 0.9 % (FLUSH) 10 ML SYRINGE 5 ML IVF ×2 (09:48→10:44)
[2022-08-01] MEDS: 0.9 % SODIUM CHLORIDE 250 ml IV (10:43)
[2022-08-01 11:00] VITALS: BP 135/82; PULSE 67; RESP 24; TEMP 36.6; O2SAT 99
[2022-08-01] MEDS: bisacodyL 5 MG TABLET DR 10 MG PO (12:00)
--- NOTE | 2022-08-01 12:04 | PC.SOCIAL ---
Answerer: SW met with pt through assistance of cook [employer] technician, completing MA application as well as application for financial assistance through hospital. Applications to be sent once pay stubs received from son, through [employer] later today. No further SW needs at this time.
--- NOTE | 2022-08-01 13:36 | P.DS_ITS ---
DS: Providers Provider Date Seen: 08/01/22 Date of admission: 07/29/22 20:57 Primary care physician: Not a Local Provider Admitting Clinician: Clary Mcgovern MD Consults: Expeller Operator Attending Physician on discharge: Yashira Dean MD Date of Discharge: 08/01/22 DS: Diagnosis Discharge Diagnosis (1) Diverticulitis: Status: Acute Problem details: - One dose of ertapenem in the ED; transitioned to Zosyn (07/29), discharged home on Augmentin - potential underlying malignancy; will need short interval outpatient colonoscopy (2) Headache: Status: Acute Problem details: - resolved after admission - Brain MRI negative - titres pending for tick-borne diseases (3) Liver lesion: Status: Acute Problem details: - Etiology unclear (concerning for malignancy). Pending results of colonoscopy, may need biopsy of these lesions as an outpatient - referral placed to IR at [facility] upon discharge Multiple hepatic lesions, with signal and enhancement characteristics which remain concerning for metastatic disease. MRI Abdomen and CT AP showing Several scattered heterogeneous ill-defined lesions throughout the liver with the largest in the left hepatic lobe measuring 3.1 x 2.9 cm and right hepatic lobe measuring 3.3 x 3.1 cm. Findings are highly concerning for metastatic disease. Colonic diverticulosis with wall thickening and inflammation involving the distal descending colon/sigmoid junction. Finding concerning for to acute diverticulitis although with the hepatic lesions as discussed above underlying colonic mass will need to be excluded. (4) Anemia: Status: Acute Problem details: - normocytic, baseline unclear (5) Elevated LFTs: Status: Acute Problem details: - likely related to #3 above DS: Summary Hospital Course Hospital Course: Mikhail is a pleasant 57-year-old male who was admitted to the hospital on 07/29 for abdominal pain and headache, diagnosed with diverticulitis on admission imaging. Notable findings during stay: - multiple liver lesions noted on imaging, concerning for metastatic disease (unknown primary). We are unable to biopsy these at our institution; referral made to [facility] upon discharge - headache resolved during stay, likely secondary to illness and dehydration - diverticulitis with concern for underlying mass; given acute infectious process, general surgery recommended short interval colonoscopy as an outpatient to evaluate further - patient does not have a regular PCP, set up to see Dr. Santillan upon discharge Followup recommendations for PCP: - please follow-up titers that are pending upon discharge (tick-borne illness) - please follow-up on referral made to [facility] IR for biopsy of multiple liver lesions - referral as an outpatient to general surgery for short interval colonoscopy - [facility] is aware of patient; currently deferring appointment until primary smiley gnancy identified Status at Discharge Functional status at discharge: independent ambulation Overall status at discharge: patient is progressing back to baseline Time Spent with Patient Time attestation: Total time spent providing and/or coordinating discharge services: Time spent: Greater than 30 minutes Specific discharge activities: Coordination with new PCP, multiple referrals, prescription medications upon discharge Exam Narrative: Exam Narrative: GEN: Alert and oriented appears nontoxic.? He is sitting comfortably in bedside chair HEENT: EOMIs bilaterally, no scleral icterus CV: RRR, No concerning murmurs, rubs, or gallops R: LCTA bilaterally without concerning wheezing, air movement adequate Back: Normal contours, no concerning skin lesions Abdomen:? Soft and nontender without distension or notable masses Ext: wwp, no concerning edema Skin: No concerning skin lesions or rashes on exposed skin Neuro: Nonfocal Psych: Appropriate Const: Vital Signs, click to edit/add: Vital Signs - 24 hr 07/31/22 15:00 07/31/22 15:00 07/31/22 17:38 Temperature 97.9 F Pulse Rate [Left P ulse Oximeter] 64 Respiratory Rate 16 Blood Pressure [Le ft Arm] Blood Pressure [Ri ght Arm] 104/56 L 106/62 Pulse Oximetry 97 98 Oxygen Delivery Me thod Room Air Room Air 07/31/22 19:00 07/31/22 20:00 07/31/22 21:57 Temperature 98 F Pulse Rate [Left P ulse Oximeter] 69 69 Respiratory Rate 16 16 Blood Pressure [Le ft Arm] Blood Pressure [Ri ght Arm] 123/69 Pulse Oximetry 97 97 Oxygen Delivery Me thod Room Air 07/31/22 21:57 07/31/22 23:00 08/01/22 02:50 Temperature 97.8 F 98.8 F Pulse Rate [Left P ulse Oximeter] 70 Respiratory Rate 16 16 Blood Pressure [Le ft Arm] Blood Pressure [Ri ght Arm] 125/64 Pulse Oximetry 97 97 Oxygen Delivery Me thod Room Air Room Air 08/01/22 04:40 08/01/22 03:00 08/01/22 07:00 Temperature 98.4 F 98.4 F 97.8 F Pulse Rate [Left P ulse Oximeter] 67 70 Respiratory Rate 16 18 Blood Pressure [Le ft Arm] 120/67 Blood Pressure [Ri ght Arm] 141/69 H Pulse Oximetry 97 99 Oxygen Delivery Me thod Room Air Room Air 08/01/22 07:00 08/01/22 07:00 08/01/22 11:00 Temperature 97.8 F Pulse Rate [Left P ulse Oximeter] 70 67 Respiratory Rate 18 18 24 Blood Pressure [Le ft Arm] 135/82 Blood Pressure [Ri ght Arm] Pulse Oximetry 99 99 Oxygen Delivery Me thod Room Air Room Air DS: Data Data Completed and Pending Labs on day of discharge: Labs from last 24 hours 08/01/22 08/01/22 07/30/22 05:28 05:28 05:36 WBC 9.59 RBC 3.84 L Hgb 11.4 L Hct 34.3 L MCV 89 MCH 30 MCHC 33 RDW Coeff of Eusebio 12.6 Plt Count 364 Neut % (Auto) 83.3 H Lymph % (Auto) 9.8 L [place] % (Auto) 6.0 Eos % (Auto) 0.2 Baso % (Auto) 0.2 Neut # (Auto) 8.00 H Lymph # (Auto) 0.90 [place] # (Auto) 0.60 Eos # (Auto) 0.02 Baso # (Auto) 0.02 Sodium 137 Potassium 3.7 Chloride 108 Carbon Dioxide 26 BUN 6 L Creatinine 0.7 Estimated Creat Clear 103.72 Estimated GFR 109 Glucose 115 Calcium 7.7 L Total Bilirubin 1.1 Direct Bilirubin 0.5 AST 46 H ALT 57 H Alkaline Phosphatase 191 H Total Protein 6.0 Albumin 2.8 L RPR Screen Non Reactive Preliminary micro results at discharge 07/29/22 19:52 Blood Culture - Preliminary Blood NO GROWTH AFTER 48 HOURS 07/29/22 20:05 Blood Culture - Preliminary Blood NO GROWTH AFTER 48 HOURS 07/30/22 17:32 Blood Culture - Preliminary Blood NO GROWTH AFTER 24 HOURS 07/30/22 17:26 Blood Culture - Preliminary Blood NO GROWTH AFTER 24 HOURS Discharge Plan Discharge Disposition: Home, Self-Care Date of Admission: 07/29/22 20:57 Attending Provider on Discharge: Yashira Dean Primary Care Provider: Provider,Not a Local Condition: Stable Anticipated Discharge Date/Time: 08/01/22 13:21 Discharge Medications: New amoxicillin-pot clavulanate 875-125 mg tablet 1 tab PO BID 7 Days Qty: 14 0RF Rx Instructions: directions in chilean please - patient will be coming with HF voucher Discharge Orders: Discharge Order (Routine); Ordered 08/01/22 Ordered By: Yashira Dean Additional Instructions: Antibiotics are at [facility]. Take as directed with food. See Dr. Santillan as scheduled to go over your hospital stay - his office can help set up your colonoscopy in a few weeks, and also your followup with a specialist to biopsy your liver lesions. Los antibi?ticos est?n en [facility]. T?packer seg?n las indicaciones con alimentos. Consulte al Dr. Santillan seg?n lo programado para revisar mcdowell estad?a en el hospital: mcdowell consultorio puede ayudarlo a programar mcdowell colonoscopia en unas pocas semanas, y tambi?n mcdowell seguimiento con un especialista para biopsiar mckenzie lesiones hep?tanner. Activity Level: No strenuous activity Activity Detail: No work until Monday, 08/08 No hay trabajo hasta el , 08/08 Discharge Diet: Low Fiber Follow Up Appointments: Robby Santillan MD [Staff Physician] - (Appt in the next 7-10 days to go over hospital stay, make colonoscopy plan, f/u on referral to [facility] and Interventional Radiology at [facility]) Provider,Not a Local [Primary Care Provider] - Gonzalo Pena MD [Staff Physician] - (To be scheduled by [facility] (they are aware of patient)) Forms: MyHealth Info Instructions
--- NOTE | 2022-08-01 14:41 | PC.NURSE ---
Discharge: Patient pleasant and cooperative. Patient vitally stable, lungs clear, BS WNL, IV removed, catheter intact. Patient tolerating clear liquids. Patient denies pain, and urinating. Patient discharge education, medications, and follow-up appointments review with patient using in-person belt sander.. Patient signed discharge form and belongings sheet. Patient left the floor by foot at 1439.
[2022-08-02 13:37] LABS: Anaplasma phagocyt PCR Not Detected; Babesia microti by PCR Not Detected; Babesia species by PCR Not Detected; Ehrlichia chaffeensis by PCR Not Detected; Ehrlichia ewingii/canis by PCR Not Detected; Ehrlichia muris-like by PCR Not Detected
== END 2022-08-01 14:39 | disposition home or self-care (01) | DRG 392 ==
LOC: ED 12:48 → MEDSURG 20:04
PROVIDERS: Hospitalist; Admitting Provider Family Medicine; Emergency Provider Family Medicine; Visit Provider Family Medicine
DX: K57.32 Diverticulitis of large intestine without perforation or abscess without bleeding (principal); C78.7 Secondary malignant neoplasm of liver and intrahepatic bile duct; R51.9 Headache, unspecified; D64.9 Anemia, unspecified; R50.9 Fever, unspecified; N40.0 Benign prostatic hyperplasia without lower urinary tract symptoms; R79.89 Other specified abnormal findings of blood chemistry
CPT/HCPCS: 36415; 70551; 71045; 71250; 74177; 74183; 80048; 80053; 80074; 80076; 81001; 82330; 82728; 82803; 82977; 83036; 83605; 83690; 83735; 84145; 84153; 84443; 84484; 85025; 85045; 85610; 85651; 86140; 86308; 86480; 86592; 86618; 86703; 87040; 87045; 87046; 87086; 87177; 87209; 87427; 87502; 87634; 87635; 87798; 93306; 94761; 99285; A9270; A9575; C9113; J1335; J1650; J1885; J2270; J2405; J2543; J7030; J7050; Q9967

== ENCOUNTER 2022-08-15 10:11 | Outpatient (RCR) | payer SELFPAY ==
[2022-08-16 16:56] LABS: Cancer Antigen-GI (CA 19-9) 4 U/mL (<=35); Carcinoembryonic Antigen 1.3 ng/mL (<=3.8)
--- NOTE | 2022-08-17 10:18 | ONC.NURNOTE ---
Patient was in to see Dr. Pena on MondayAugust 15 and pathology from [facility] called and let Dr. Pena know that biopsy was negative and patient then told and was very happy about not having any cancer in liver. Peripheral labs taken and tumor markers negative as well so patient discharged from oncology and care transferred back to primary MD. Notes sent to primary Md regarding oncology visit-labs and biopsy.
== END 2023-02-11 23:59 | disposition home or self-care (01) ==
LOC: CCIC 10:11
PROVIDERS: PCP Family Medicine; Visit Provider Internal Medicine Medical Oncology
DX: K76.9 Liver disease, unspecified (principal); K57.32 Diverticulitis of large intestine without perforation or abscess without bleeding; D64.9 Anemia, unspecified
CPT/HCPCS: 36415; 82378; 86301; 99202; 99204

== ENCOUNTER 2022-10-04 08:27 | Outpatient (CLI) | payer OTHER, SELFPAY ==
--- NOTE | 2022-10-04 09:00 | CRLHL7_ITS ---
For Patients: As a result of the Century Cures Act, medical imaging exams and procedure reports are released immediately into your electronic medical record. You may view this report before your referring provider. If you have questions, please contact your health care provider. Indication: LIVER LESION, DIVERTICULITIS, ABNORMAL LFTS Technique: Postcontrast CT abdomen and pelvis. 80 cc Isovue 370 intravenous contrast. Oral water. Please note that all CT scans at this facility use dose modulation, iterative reconstruction, and/or weight-based dosing when appropriate to reduce radiation dose to as low as reasonably achievable. Comparison: CT biopsy 08/12/2022. MRI abdomen 07/29/2022, CT 07/29/2022 Findings: Lung bases are clear. There is no pleural effusion. Decreased conspicuity of previously noted liver lesions when compared to the prior exams. The spleen is normal. Adrenal glands unremarkable. Kidneys normal. Normal pancreas. Gallbladder absent. No adenopathy or free air. No free fluid or abscess. Chronic sigmoid diverticulosis with decreased inflammation compared to the prior CT. Normal bladder. Prostate mildly heterogeneous. Small left inguinal hernia is present measuring 2 cm, similar to the prior exam. No fracture. Impression: Decreased conspicuity of previously noted liver lesions compared to the prior exams. Gallbladder absent without biliary obstruction. Sigmoid diverticulosis with interval resolution of previously noted inflammatory changes. Please note that all CT scans at this facility use dose modulation, iterative reconstruction, and/or weight-based dosing when appropriate to reduce radiation dose to as low as reasonably achievable. Dictated by Pete Porras MD @ 10/04/2022 12:53:56 PM (Electronically Signed)
== END 2022-10-04 08:28 | disposition home or self-care (01) ==
PROVIDERS: PCP Family Medicine; Visit Provider Internal Medicine Gastroenterology
DX: K57.92 Diverticulitis of intestine, part unspecified, without perforation or abscess without bleeding (principal); K76.9 Liver disease, unspecified; R79.89 Other specified abnormal findings of blood chemistry; K57.30 Diverticulosis of large intestine without perforation or abscess without bleeding
CPT/HCPCS: 74177; T1013; Q9967

== ENCOUNTER 2023-02-24 10:39 | Outpatient (CLI) | payer SELFPAY ==
--- NOTE | 2023-02-24 11:00 | CRLHL7_ITS ---
For Patients: As a result of the Century Cures Act, medical imaging exams and procedure reports are released immediately into your electronic medical record. You may view this report before your referring provider. If you have questions, please contact your health care provider. Indication: Liver lesions Technique: Pre and post-contrast CT abdomen performed. Postcontrast CT pelvis. 80 cc Isovue 370 intravenous contrast. Contrast enhanced images acquired in the arterial, portal venous and delayed phase. Portal venous phase imaging carried through the pelvis. Please note that all CT scans at this facility use dose modulation, iterative reconstruction, and/or weight-based dosing when appropriate to reduce radiation dose to as low as reasonably achievable. Comparison: MRI 07/29/2022, CT 10/04/2022 Findings: The previously detected liver lesions on MRI are difficult to appreciate on CT and the liver appears similar to the most recent CT scan. No ascites. No biliary duct dilation. The gallbladder is absent. Hepatic steatosis noted. Normal pancreas and spleen. Normal adrenal glands and kidneys. The lung bases are clear. No free intraperitoneal air. Extensive diverticulosis of the sigmoid colon with adjacent subcentimeter mesenteric lymph nodes. No abscess or bowel obstruction. Bladder normal. Prostate not enlarged. Left inguinal hernia containing fat. No fracture is present. Impression: The liver appears similar to the CT scan from 10/04/2022. No discernible liver mass on today`s exam. Mild chronic diffuse hepatic steatosis. Status post cholecystectomy. No biliary obstruction. Severe chronic sigmoid diverticulosis. Left inguinal hernia containing fat. Please note that all CT scans at this facility use dose modulation, iterative reconstruction, and/or weight-based dosing when appropriate to reduce radiation dose to as low as reasonably achievable. Dictated by Pete Porras MD @ 02/24/2023 12:46:04 PM (Electronically Signed)
== END 2023-02-24 10:40 | disposition home or self-care (01) ==
LOC: CT 10:40
PROVIDERS: PCP Family Medicine; Visit Provider Internal Medicine Gastroenterology
DX: K76.9 Liver disease, unspecified (principal); K76.0 Fatty (change of) liver, not elsewhere classified; K57.30 Diverticulosis of large intestine without perforation or abscess without bleeding; K40.90 Unilateral inguinal hernia, without obstruction or gangrene, not specified as recurrent
CPT/HCPCS: 74170; T1013; Q9967